=== PATIENT | female | born 1950 | race Caucasian/White ===

== ENCOUNTER 2020-06-18 11:12 | Outpatient (REF) | payer MEDICARE, SELFPAY ==
--- NOTE | ~2020-06-18 | CT_ITS ---
EXAMINATION: CT HEAD WITHOUT CONTRAST CLINICAL INFORMATION: Neurologic symptoms. COMPARISON: None available. TECHNIQUE: Contiguous axial imaging was performed from the skull base to vertex without intravenous administration of contrast. This CT examination was performed using dose optimization techniques as appropriate, variously including the following: *Automated exposure control. *Adjustment of mA and/or kV according to patient size (this includes techniques or standardized protocols for targeted exams where dose is matched to indication/reason for exam; i.e. extremities or head). *Use of iterative reconstruction technique. DLP: 675 mGy-cm FINDINGS: There is no evidence of acute intracranial hemorrhage or edematous territorial infarction. Scattered hypoattenuation in the periventricular and deep white matter are consistent with moderate microangiopathy. Ball-white matter differentiation is preserved. Proportional prominence of the ventricles and sulcal spaces. No evidence for obstructive hydrocephalus. No abnormal mass effect or midline shift. No extra-axial fluid collections. Calcific atherosclerotic disease of the intracranial internal carotid arteries. No hyperdense vessel sign. No acute soft tissue or osseous abnormalities. Mild mucosal thickening of the paranasal sinuses. The mastoid air cells and middle ear cavities are clear. CT/CT head/brain wo con IMPRESSION: 1. No evidence of acute intracranial hemorrhage or edematous territorial infarction. 2. Moderate underlying microangiopathy and generalized cerebral volume loss.
== END 2020-06-18 11:13 | disposition home or self-care (01) ==
LOC: HO.CT 11:12
PROVIDERS: Visit Provider Internal Medicine
DX: R29.818 Other symptoms and signs involving the nervous system (principal); R42 Dizziness and giddiness
CPT/HCPCS: 70450

== ENCOUNTER 2020-06-19 09:00 | Outpatient (RCR) | payer MEDICARE, SELFPAY | END 2020-06-19 11:27 | disposition other institution (70) | LOC: HO.OT 09:00 | PROVIDERS: PCP Internal Medicine; Visit Provider Physical Medicine & Rehabilitation Sports Medicine | DX: G56.03 Carpal tunnel syndrome, bilateral upper limbs (principal) | CPT/HCPCS: 97110; 97140; 97166 ==

== ENCOUNTER 2020-06-29 08:53 | Outpatient (REF) | payer MEDICARE, SELFPAY ==
--- NOTE | ~2020-06-29 | CT_ITS ---
EXAMINATION: CT CHEST SCREENING CLINICAL INFORMATION: Smoking history COMPARISON: Previous chest x-ray most recent April 2015 TECHNIQUE: Multidetector volumetric CT imaging of the chest is performed without contrast using low dose technique. Additional 2D coronal and sagittal reformatted images and axial 3D maximum intensity projection (MIP) images are generated on the CT workstation. This CT examination was performed using dose optimization techniques as appropriate, variously including the following: *Automated exposure control *Adjustment of mA and/or kV according to patient size (this includes techniques or standardized protocols for targeted exams where dose is matched to indication/reason for exam; i.e. extremities or head) *Use of iterative reconstruction technique DLP: 58 mGy-cm FINDINGS: LUNGS: There is a 1 to 2 mm right upper lobe nodule axial image 67 series 5. There is a 3 x 4 mm heterogeneous or semisolid right upper lobe nodule axial image 101 series 5. There is a 2 mm peripheral or subpleural superior segment right lower lobe nodule adjacent to the major fissure axial image 126 series 5. No endobronchial or endotracheal lesion is seen. MEDIASTINUM: The mediastinum is normal. PLEURA: There is no pleural effusion. No pleural mass or thickening. AXILLA: No lymphadenopathy. There is a 1 x 1.5 cm subcutaneous low-attenuation lesion in the right upper back probably representing a sebaceous cyst or epidermoid. UPPER ABDOMEN: Unremarkable OSSEOUS STRUCTURES: There are mild degenerative changes of the spine. CT/CT lung screening IMPRESSION: Small pulmonary nodules. ASSESSMENT: Lung-RADS category 2: Benign RECOMMENDATION: Annual low-dose chest CT follow-up recommended.
== END 2020-06-29 08:54 | disposition home or self-care (01) ==
LOC: HO.CT 08:53
PROVIDERS: Visit Provider Surgery
DX: Z12.2 Encounter for screening for malignant neoplasm of respiratory organs (principal); F17.210 Nicotine dependence, cigarettes, uncomplicated
CPT/HCPCS: 71271

== ENCOUNTER 2020-07-03 10:00 | Outpatient (RCR) | payer MEDICARE, SELFPAY ==
[2020-06-07 12:05] VITALS: BP 152/67; PULSE 64; O2SAT 97
--- NOTE | 2020-06-07 14:01 | MHC.PT.EP ---
[facility] [place] Office [place] Office [place] [facility] [address] Chey Stahl [address] [phone] F: [phone] F: [phone] F: [phone] F: [phone] Physical Therapy Plan of Care Date of Evaluation: 06/07/20 Date of Surgery: Diagnosis: Dizziness Assessment: The Pt is a 69 y/o female referred to skilled PT for dizziness. Signs and symptoms are consistent with balance impairments related to vestibular hypofunction. Assessment reveals decreased balance strategies, impaired gait, impaired DVA, impaired convergence, and mild dizziness w/ VOR tests. Related functional limitations include: bending over to pick something up, rolling over in bed, moving from supine to sitting, walking (feels like she goes off balanced), and performing quick movements of the head, such as when driving. Pt will benefit from skilled PT services w/ focus on habituation and balance training in order to reduce impairments and improve limitations. Of note, Pt is being seen by Occupational therapy for bilateral arm and hand weakness & numbness. She has a brain CT coming up soon. Frequency and Duration: The patient will be seen 1x/week for 10 weeks Short Term Goals: -In 2 weeks, Pt will demonstrate I w/ VOR x 1, VOR cancellation, and visual tracking exercises. -In 4 weeks, Pt to report no dizziness w/ bed mobility and functional transfers. 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 -In 8 weeks, Pt will score within 3 lines of baseline w/ vertical and horizontal head turns on DVA test. Treatment Plan: Vestibular therapy (habituation/adaptation) Gait training Therapeutic exercise to improve strength and flexibility. Neuromuscular re-education for posture and balance. Therapeutic activities to return to functional activities of daily living. Electronically signed by: Shirley Hawk PT, DPT Please sign and return to therapist. Thank you for your referral.
== END 2020-11-07 13:45 | disposition home or self-care (01) ==
LOC: HO.PT 10:00
PROVIDERS: PCP Internal Medicine; Visit Provider Internal Medicine
DX: R42 Dizziness and giddiness (principal)
CPT/HCPCS: 95992; 97112; 97161

== ENCOUNTER 2020-07-30 12:22 | Outpatient (REF) | payer MEDICARE, SELFPAY ==
--- NOTE | ~2020-07-30 | MM_ITS ---
EXAMINATION: MM SCREENING DIGITAL BREAST TOMOSYNTHESIS, BILATERAL CLINICAL INFORMATION: Screening. Asymptomatic. The lifetime risk of breast cancer based on the Tyrer-Cuzick Model is 3.2%. COMPARISON: Mammography: March 31, 2015 and studies dating back to December 27, 2007 TECHNIQUE: Digital breast tomosynthesis is performed in both the craniocaudal and mediolateral oblique views along with computer-aided detection (CAD). Synthesized 2D images are generated from the tomosynthesis. FINDINGS: The breasts are almost entirely fatty (ACR BI-RADS breast composition Category a). There is an oval density seen about the upper outer aspect of the right breast which is seen to have been present on study of December 27, 2007. No new abnormal dominant mass or suspicious grouping of microcalcifications identified. MM/MM tomosynthesis screening BI IMPRESSION: There are no significant changes from prior study. ASSESSMENT: BI-RADS 2: Benign RECOMMENDATION: Routine annual mammography screening. This patient's information was entered into a reminder system with a target due date for their next mammogram.
== END 2020-07-30 12:23 | disposition home or self-care (01) ==
LOC: HO.MAMMO 12:22
PROVIDERS: Visit Provider Internal Medicine
DX: Z12.31 Encounter for screening mammogram for malignant neoplasm of breast (principal)
CPT/HCPCS: 77063; 77067

== ENCOUNTER 2020-08-01 12:41 | Outpatient (REF) | payer MEDICARE, SELFPAY ==
--- NOTE | ~2020-08-01 | MR_ITS ---
EXAMINATION: MR CERVICAL SPINE WITHOUT CONTRAST CLINICAL INFORMATION: Neck pain. COMPARISON: No relevant prior imaging. TECHNIQUE: MRI of the cervical spine was obtained using routine sequences without contrast. FINDINGS: Alignment is normal. Vertebral body heights are preserved. No acute bone marrow signal changes. There are well marginated intraosseous hemangiomas involving multiple vertebral segments. There is loss of intervertebral disc height and T2 signal intensity at multiple levels related to disc degeneration. The cervicomedullary junction is normal. Limited visualization of the posterior fossa reveals no abnormal 5. Occipital condyles and lateral C1 masses are intact. Atlantodental joint is normal. C1-C2 articular facets are unremarkable. At C2-C3 the annular contour is normal. No canal or neuroforaminal compromise. At C3-C4 there is a central protrusion superimposed upon a bulging disc causing indentation of the thecal sac, severe canal stenosis, and compression of the cervical spinal cord. There is a short segment of increased intramedullary T2 signal intensity indicating edema and/or myelomalacia. Uncovertebral joint spurring causes moderate left and mild right neuroforaminal encroachment. At C4-C5 there is a shallow central protrusion superimposed upon a bulging disc. Moderate to severe canal stenosis with subtle distortion of the ventral cord contour. Uncovertebral joint spurring causes moderate bilateral neuroforaminal encroachment. At C5-C6 there is a diffusely bulging disc and buckling of ligamenta flava causing moderate to severe canal stenosis. Uncovertebral joint spurring causes moderate left and moderate right neuroforaminal encroachment. At C6-C7 there is a broad central protrusion causing abutment on the ventral surface of the cervical cord. Mild canal stenosis. No substantial neuroforaminal encroachment. At C7-T1 the annular contour is normal. No canal or neuroforaminal compromise. Visualized soft tissues of the neck are normal. MR/MR cervical spine wo con IMPRESSION: There are disc herniations at multiple levels within the cervical spine. At C3-C4 a relatively large disc herniation causes severe canal stenosis with compression of the cervical spinal cord. There is a short segment of edema and/or myelomalacia at this level. Moderate to severe canal stenosis is also demonstrated at C4-C5 and C5-C6. Mild canal stenosis at C6-C7. There are varying degrees of neuroforaminal encroachment related to uncovertebral joint spurring as described above.
== END 2020-08-01 12:42 | disposition home or self-care (01) ==
LOC: HO.MRI 12:41
PROVIDERS: Visit Provider Orthopaedic Surgery Hand Surgery
DX: M54.2 Cervicalgia (principal)
CPT/HCPCS: 72141

== ENCOUNTER 2020-11-16 10:11 | Outpatient (REF) | payer MEDICARE, SELFPAY ==
[2020-11-16 11:13] LABS: MANUAL DIFF FLAG NO
[2020-11-16 11:29] LABS: INTERNATIONAL NORM RATIO 1.1 (0.9-1.1)
[2020-11-16 11:31] LABS: Partial Thromboplastin Time 39.9 SEC (24.1-38.0)
[2020-11-16 11:38] LABS: Basophils Percent Auto 0.2 % (0-2); Eosinophils Percent Auto 0.2 % (0-4); Hematocrit 38.4 % (37-47); Imm Gran Abs Auto 0.03 X10*3/uL (0.00-0.03); Imm Gran Pct Auto 0.6 % (0.0-0.4); Lymphocytes Absolute Auto 2.2 X10*3/uL (1.2-4.9); Lymphocytes Percent Auto 40.7 % (20-40); Mean Corpuscular HGB Conc 33.9 g/dl (31.0-35.0); Mean Corpuscular Hemoglobin 33.7 pg (27.0-33.0); Mean Corpuscular Volume 99.5 fL (80-98); Mean Platelet Volume 11.7 fL (9.4-12.3); Monocytes Absolute Auto 0.5 X10*3/uL (0.1-1.2); Monocytes Percent Auto 9.3 % (2-11); Neutrophils Absolute Auto 2.7 X10*3/uL (2.0-8.3); Platelet Count 162 X10*3/uL (160-400); Red Blood Count 3.86 X10*6/uL (4.20-5.50); Red Cell Distribution Width 12.8 % (11.0-16.0); White Blood Count 5.4 X10*3/uL (4.8-10.8)
[2020-11-16 12:03] LABS: Alanine Aminotransferase 20 U/L (0-31); Albumin Level 3.9 g/dL (3.5-5.0); Alkaline Phosphatase 77 U/L (39-117); Anion Gap 11 (12-20); Aspartate Amino Transferase 19 U/L (5-31); Bilirubin Total 0.6 mg/dL (0.0-1.0); Blood Urea Nitrogen 9 mg/dL (9-16); Calcium 9.5 mg/dL (8.4-10.2); Carbon Dioxide 26 mmol/L (22-29); Chloride 108 mmol/L (96-108); Estimated Glomerular Filt Rate > 60; Glucose Random 86 mg/dL (60-115); Potassium 3.9 mmol/L (3.3-5.1); Sodium 141 mmol/L (135-145); Total Protein 6.2 g/dL (6.5-8.0)
[2020-11-16 12:16] LABS: TSH reflex Free T4 1.33 uIU/mL (0.32-4.0); Vitamin D 25-OH Total 5.7 ng/mL (>30)
[2020-11-16 12:25] LABS: Folate 9.1 ng/mL (> or = 4.0); Vitamin B12 146 pg/mL (200-900)
== END 2020-11-16 10:12 | disposition home or self-care (01) ==
LOC: HO.HMGCLDS 10:11
PROVIDERS: PCP Internal Medicine; Visit Provider Internal Medicine
DX: Z00.00 Encounter for general adult medical examination without abnormal findings (principal); G95.9 Disease of spinal cord, unspecified
CPT/HCPCS: 36415; 80053; 82306; 82607; 82746; 84443; 85025; 85027; 85610; 85730

== ENCOUNTER 2021-07-31 12:31 | Outpatient (REF) | payer MEDICARE, SELFPAY ==
--- NOTE | ~2021-07-31 | MM_ITS ---
EXAMINATION: MM SCREENING DIGITAL BREAST TOMOSYNTHESIS, BILATERAL CLINICAL INFORMATION: Screening. Asymptomatic. The lifetime risk of breast cancer based on the Tyrer-Cuzick Model is 3%. COMPARISON: Mammography: 07/30/2020, 03/31/2015 TECHNIQUE: Digital breast tomosynthesis is performed in both the craniocaudal and mediolateral oblique views along with computer-aided detection (CAD). Synthesized 2D images are generated from the tomosynthesis. Additional bilateral CC and right MLO views are provided. FINDINGS: There are scattered areas of fibroglandular density (ACR BI-RADS breast composition Category b). There are no significant masses, abnormal calcifications, or other abnormalities. Parenchymal pattern is similar to prior studies. No developing density or architectural abnormality. There are scattered bilateral benign round and probable ductal secretory calcifications. The axilla are unremarkable. No significant changes. MM/MM tomosynthesis screening BI IMPRESSION: No mammographic evidence of malignancy. ASSESSMENT: BI-RADS 2: Benign RECOMMENDATION: Routine annual mammography screening. This patient's information was entered into a reminder system with a target due date for their next mammogram.
== END 2021-07-31 12:32 | disposition home or self-care (01) ==
LOC: HO.MAMMO 12:31
PROVIDERS: PCP Internal Medicine; Visit Provider Internal Medicine
DX: Z12.31 Encounter for screening mammogram for malignant neoplasm of breast (principal)
CPT/HCPCS: 77063; 77067

== ENCOUNTER 2022-05-13 20:28 | Emergency (ER) | payer MEDICARE, SELFPAY ==
--- NOTE | ~2022-05-13 | XR_ITS ---
EXAMINATION: XR CHEST CLINICAL INFORMATION: Chest tube placement COMPARISON: Earlier same day TECHNIQUE: Frontal view of the chest was obtained. FINDINGS: The chest tube in the lateral chest wall subcutaneous tissues has been removed. Trace left pneumothorax appears even smaller than on the prior exam. No parenchymal consolidation. No pleural effusion. Cardiomediastinal silhouette and pulmonary vascularity are within normal limits. No acute osseous abnormalities. XR/XR chest 1V IMPRESSION: * Interval removal of the chest tube. * Trace left pneumothorax appears smaller than on the prior exam.
--- NOTE | ~2022-05-13 | CT_ITS ---
EXAMINATION: CT HEAD WITHOUT CONTRAST CT CERVICAL SPINE WITHOUT CONTRAST CLINICAL INFORMATION: Fall. Head strike. COMPARISON: 06/18/2020 TECHNIQUE: Multidetector CT imaging of the head and cervical spine was performed without the use of intravenous contrast. Multiplanar reformats are reviewed. This CT examination was performed using dose optimization techniques as appropriate, variously including the following: *Automated exposure control *Adjustment of mA and/or kV according to patient size (this includes techniques or standardized protocols for targeted exams where dose is matched to indication/reason for exam; i.e. extremities or head) *Use of iterative reconstruction technique DLP: 742 mGy-cm. FINDINGS: There is no evidence of acute intracranial hemorrhage or territorial infarction. No abnormal mass effect or midline shift is seen. Ball to white matter differentiation is well preserved. No extra-axial fluid collections are identified. No hydrocephalus. Proportional prominence of the ventricles and sulcal spaces is consistent with mild volume loss. Patchy periventricular and deep white matter hypoattenuation is consistent with moderate small vessel ischemic changes. No acute osseous or soft tissue abnormality. The mastoid air cells and visualized portions of the paranasal sinuses are well aerated. Atlantooccipital alignment is maintained. The vertebral bodies and posterior elements align normally. No acute fracture or subluxation. Vertebral body heights are maintained. Small endplate osteophytes present C5-C6 and C6-C7. Postsurgical changes of the left lateral posterior lamina C4, C5-C6, with resection of the spinous processes these levels. The paraspinal soft tissues are unremarkable. Imaged thorax reveals a moderate left pneumothorax. CT/CT cervical spine wo IV con IMPRESSION: No acute intracranial pathology. No cervical spine fracture or malalignment. Moderate left pneumothorax. Referring team has been notified.
--- NOTE | ~2022-05-13 | CT_ITS ---
EXAMINATION: CT CHEST, ABDOMEN AND PELVIS WITHOUT CONTRAST. CLINICAL INFORMATION: Fall. Trauma . COMPARISON: 06/29/2020. TECHNIQUE: Multidetector volumetric imaging was performed from the thoracic inlet through the pubic symphysis without intravenous contrast. Sagittal and coronal reformatted images were obtained on the technologist workstation. This CT examination was performed using dose optimization techniques as appropriate, variously including the following: *Automated exposure control *Adjustment of mA and/or kV according to patient size (this includes techniques or standardized protocols for targeted exams where dose is matched to indication/reason for exam; i.e. extremities or head) *Use of iterative reconstruction technique DLP: 1302 mGy-cm FINDINGS: CHEST: Lungs: Small moderate left-sided pneumothorax is seen. This associated mild left basilar atelectasis. No dense consolidation or suspicious pulmonary nodularity. Central airways grossly unremarkable Mediastinum: Vascular calcification seen within the aorta. No suspicious or bulky adenopathy. Asymmetric enlargement of the left thyroid gland similar to the prior study Coronary Artery Calcification: Present Pericardium/Pleura: Small left pleural effusion. No pericardial effusion Chest Wall/Axilla: Unremarkable. ABDOMEN/PELVIS: Peritoneal Space:No significant free air or free fluid identified. Liver, Gallbladder, Biliary Tree: Diffuse fatty infiltration of the liver but no focal hepatic lesion nor biliary ductal dilatation. The gallbladder is unremarkable with no evidence of radiopaque gallstones, gallbladder wall thickening, or obvious pericholecystic inflammatory changes. Pancreas: Unremarkable. Spleen: Unremarkable. Adrenal Glands: Unremarkable. Kidneys and Ureters: The kidneys are normal in size, shape, and attenuation. No hydronephrosis, hydroureter, or calculi seen. No perinephric stranding. Bladder: Unremarkable. Gastrointestinal Tract: Colon is redundant with scattered diverticulosis but no colonic wall thickening or pericolonic inflammatory change to suggest diverticulitis. Although there is prominent stool seen within the colon, there is a suggestion of some subtle pneumatosis in the cecum. I'm uncertain of this is artifactual due to the stool in this region. Clinical correlation with lactate level may be helpful Abdominal Wall: No significant hernia is appreciated. Lymphovascular Structures: Mild vascular calcification within the aorta iliac system. No bulky adenopathy. Pelvic Viscera: Unremarkable. Osseus Structures: Subtle nondisplaced fractures of the posterior left fifth, sixth, seventh and ninth rib fractures are seen. No significant right-sided rib fracture. Mild multilevel degenerative changes in the spine but no acute fracture or spondylolisthesis. CT/CT abdomen pelvis wo IV con IMPRESSION: 1. Small to moderate left-sided pneumothorax with nondisplaced left-sided rib fractures as described above. 2. There is a suggestion of some subtle pneumatosis in the cecum. I'm uncertain of this is artifactual due to the stool in this region. Clinical correlation with lactate level may be helpful. This critical result was discussed with Dr. Amaro at 05/13/2022 11:08 PM and it was ascertained that the content and urgency of the report was understood at the time of direct communication.
--- NOTE | ~2022-05-13 | XR_ITS ---
EXAMINATION: XR CHEST CLINICAL INFORMATION: Chest tube placement COMPARISON: CT scan 05/13/2022 10:31 PM TECHNIQUE: Frontal view of the chest was obtained. FINDINGS: Heart size normal. A tiny left-sided pneumothorax is present only visible at the apex, with the pleural surface pulled away by less than 3 mm. The recently placed small caliber left-sided chest tube is not within the pleural space but in the chest wall. There is a small amount of subcutaneous emphysema. No infiltrates or effusions. Minimally displaced left-sided rib fractures better seen on the CAT scan. XR/XR chest 1V IMPRESSION: Tiny left-sided pneumothorax with chest tube in the chest wall and not the pleural space. This critical result was discussed with Riya GARCIA at 12:59 AM on 05/14/2022 and it was ascertained that the content and urgency of the report was understood at the time of direct communication.
[2022-05-13 20:34] VITALS: BP 140/80; BP 170/66; PULSE 72; PULSE 75; RESP 18; TEMP 36.7; O2SAT 95; BMI 31.6
--- NOTE | 2022-05-13 20:43 | PC.NURSE ---
RN upgraded pt's PRASHANTH from a 3 to a 2 due to mechanism of injury and pt's presentation. Pt awake, alert, answering questions appropriately. Prior to triage the pt requested the HOB be lifted slightly d/t difficulty breathing which was relieved by the HOB being lifted; denies respiratory history although currently reports having bronchitis. Pt initially observed to be 98% on room air however during triage the pt's O2 Sat was noted to go down and stay steadily at 95% with persed lip breathing. RN presented the pt to JOSE Worthington to discuss imaging and order needs. New orders to be entered. Pt aware of plan for imaging and is awaiting primary eval Pt has call spence in reach
[2022-05-13 21:04] LABS: MANUAL DIFF FLAG NO
--- NOTE | 2022-05-13 21:10 | ED.FALL ---
HPI - Fall General Chief Complaint: Fall <Chilo Mae MD - Last Filed: 05/14/22 05:37> Stated Complaint: FALL + HEADSTRIKE <Chilo Mae MD - Last Filed: 05/14/22 05:37> Time Seen by Provider: 05/13/22 21:10 <MD Cesia Waldron Last Filed: 05/14/22 05:37> Source: patient <Chilo Mae MD - Last Filed: 05/14/22 05:37> Mode of arrival: ambulatory <MD Cesia Waldron Last Filed: 05/14/22 05:37> Limitations: no limitations <MD Cesia Waldron Last Filed: 05/14/22 05:37> History of Present Illness HPI Narrative: Patient apparently missed a step while going to the bathroom causing her fall hitting her left side of the head to the wall and left ribs to the shower ledge, no loss of consciousness no nausea no vomiting patient feels pain in left ribs with deep breaths no significant shortness of breath no headache no seizures also complaining of pain left side of the neck patient recently had neck fusion surgery patient is not on any blood thinner able to ambulate <Chilo Mae MD - Last Filed: 05/14/22 05:37> Related Data Home Medications: Previous Rx's Medication Instructions Recorded cholecalciferol (vitamin D3) 125 125 mcg PO DAILY #90 caps 11/17/20 mcg (5,000 unit) capsule cyanocobalamin (vitamin B-12) 2,000 mcg PO DAILY #90 tabs 11/17/20 2,000 mcg tablet <MD Cesia Waldron Last Filed: 05/14/22 05:37> Allergies/Adverse Reactions: Allergies Allergy/AdvReac Type Severity Reaction Status Date / Time IVP Allergy Unknown anaphylaxis Uncoded 05/13/22 20:48 <Chilo Mae MD - Last Filed: 05/14/22 05:37> Review of Systems Review of Systems: Constitutional : No Weight loss, No Fever, No Chills ENT/Mouth : No sore throat, No Rhinorrhea Eyes: No Eye Pain, No Swelling Cardiovascular : ++L Chest wall Pain, no palpitations Respiratory : No Cough, No Sputum, no shortness of breath Gastrointestinal : no Nausea, No Vomiting, No Diarrhea, No abdominal Pain, no black stools Genitourinary : No Dysuria, No Urinary Frequency Musculoskeletal : No joint pain, No Myalgias, No Joint Swelling Skin : No Skin Lesions, No rash Neuro : No Weakness, No Numbness, No Dizziness, No Headache Psych : No Anxiety/Panic, No Depression Heme/Lymph: No Bruising, No Lymphadenopathy Endocrine : No Polyuria, No Polydipsia All other systems reviewed and are negative <Chilo Mae MD - Last Filed: 05/14/22 05:37> Yes all other systems are reviewed and are negative <Chilo Mae MD - Last Filed: 05/14/22 05:37> [facility] Past Medical History Medical History: Medical History Annual physical exam Cervical myelopathy LBBB (left bundle branch block) 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 Tinnitus Tobacco abuse Vertigo Vitamin B 12 deficiency Vitamin D deficiency <Chilo Mae MD - Last Filed: 05/14/22 05:37> Surgical History: Surgical History H/O gastric bypass History of appendectomy <Chilo Mae MD - Last Filed: 05/14/22 05:37> Family History Family History: Family History Father Diabetes Mother HTN (hypertension) <Chilo Mae MD - Last Filed: 05/14/22 05:37> Social History Social History: Social History Household Members Other:: lives mother, sisters Housing: House Alcohol intake: former Patient Tobacco Use Status: Current everyday Tobacco user Tobacco use type: Cigarette Cigarettes Per Day: 15 Smoked in Last 30 Days: Yes Use of substances other than those prescribed or required for medical reasons: No Advance Directives: No Advance Directives Information Provided: Yes Current occupational status: retired <Chilo Mae MD - Last Filed: 05/14/22 05:37> Physical Exam Vital Signs: Vital Signs: Last Vital Signs Temp 98.2 F 05/14/22 04:34 Pulse 81 05/14/22 04:34 Resp 16 05/14/22 04:34 BP 124/58 L 05/14/22 04:34 Pulse Ox 97 05/14/22 04:34 O2 Del Method 05/14/22 04:34 O2 Flow Rate 2 05/14/22 04:34 BMI result Body Mass Index 31.6 <Chilo Mae MD - Last Filed: 05/14/22 05:37> Vital Signs: Last Vital Signs Temp 98.2 F 05/14/22 04:34 Pulse 81 05/14/22 04:34 Resp 16 05/14/22 04:34 BP 124/58 L 05/14/22 04:34 Pulse Ox 97 05/14/22 04:34 O2 Del Method 05/14/22 04:34 O2 Flow Rate 2 05/14/22 04:34 BMI result Body Mass Index 31.6 <Mehnaz Back MD - Last Filed: 05/14/22 01:09> Appearance: Alert. Oriented X3. In moderate distress. Eyes: PERRLA, No Nystagmus ENT: Pharynx normal. Oral Mucosa moist Neck: Normal inspection. Neck supple. In cervical collar CVS: Normal heart rate and rhythm. Pulses normal. Respiratory: No respiratory distress. Equal air entry bilateral, no wheezing/rales/rhonchi tender left upper ribs in mid axillary area Abdomen: Soft and nontender. Bowel sounds are present, no mass palpable, no CVA tenderness Skin: Skin warm and dry. Normal skin color. Normal skin turgor. Extremities: No lower extremity edema. No calf tenderness Neuro: Oriented X 3. No motor deficit. No sensory deficit.No cerebellar signs , cranial nerves II-XII intact <Chilo Mae MD - Last Filed: 05/14/22 05:37> Medications Administered Discontinued Medications Generic Name Dose Route Start Last Admin Trade Name Freq PRN Reason Stop Dose Admin Hydromorphone HCl 1 mg 05/13/22 23:45 05/13/22 23:54 Hydromorphone Hcl 1 Mg/Ml Syringe IVPUSH 05/13/22 23:46 1 mg ONCE ONE Administration Protocol Hydromorphone HCl 1 mg 05/14/22 01:09 05/14/22 01:18 Hydromorphone Hcl 1 Mg/Ml Syringe IVPUSH 05/14/22 01:10 1 mg ONCE ONE Administration Protocol Ketamine HCl 200 mg 05/13/22 23:21 05/13/22 23:58 Ketamine Hcl 500 Mg/5 Ml Vial IM 05/13/22 23:22 200 mg ONCE ONE Administration Lidocaine HCl 20 ml 05/13/22 23:21 05/14/22 01:19 Lidocaine Hcl 2 % Mpf 5 Ml Vial INFILTRATI 05/13/22 23:22 20 ml ONCE ONE Administration Morphine Sulfate 4 mg 05/13/22 21:17 05/13/22 21:42 Morphine Sulfate 4 Mg/Ml Cartridge IVPUSH 05/13/22 21:18 4 mg ONCE ONE Administration Protocol Ondansetron HCl 4 mg 05/13/22 21:17 05/13/22 21:42 Ondansetron Hcl 4 Mg/2 Ml Vial IVPUSH 05/13/22 21:18 4 mg ONCE ONE Administration Ondansetron HCl 4 mg 05/13/22 23:25 05/13/22 23:56 Ondansetron Hcl 4 Mg/2 Ml Vial IVPUSH 05/13/22 23:26 4 mg ONCE ONE Administration <Chilo Mae MD - Last Filed: 05/14/22 05:37> Medications Administered Discontinued Medications Generic Name Dose Route Start Last Admin Trade Name Freq PRN Reason Stop Dose Admin Hydromorphone HCl 1 mg 05/13/22 23:45 05/13/22 23:54 Hydromorphone Hcl 1 Mg/Ml Syringe IVPUSH 05/13/22 23:46 1 mg ONCE ONE Administration Protocol Hydromorphone HCl 1 mg 05/14/22 01:09 05/14/22 01:18 Hydromorphone Hcl 1 Mg/Ml Syringe IVPUSH 05/14/22 01:10 1 mg ONCE ONE Administration Protocol Ketamine HCl 200 mg 05/13/22 23:21 05/13/22 23:58 Ketamine Hcl 500 Mg/5 Ml Vial IM 05/13/22 23:22 200 mg ONCE ONE Administration Lidocaine HCl 20 ml 05/13/22 23:21 05/14/22 01:19 Lidocaine Hcl 2 % Mpf 5 Ml Vial INFILTRATI 05/13/22 23:22 20 ml ONCE ONE Administration Morphine Sulfate 4 mg 05/13/22 21:17 05/13/22 21:42 Morphine Sulfate 4 Mg/Ml Cartridge IVPUSH 05/13/22 21:18 4 mg ONCE ONE Administration Protocol Ondansetron HCl 4 mg 05/13/22 21:17 05/13/22 21:42 Ondansetron Hcl 4 Mg/2 Ml Vial IVPUSH 05/13/22 21:18 4 mg ONCE ONE Administration Ondansetron HCl 4 mg 05/13/22 23:25 05/13/22 23:56 Ondansetron Hcl 4 Mg/2 Ml Vial IVPUSH 05/13/22 23:26 4 mg ONCE ONE Administration <Mehnaz Back MD - Last Filed: 05/14/22 01:09> Procedures Chest Tube Chest Tube 1: Chest Tube Location: left <Mehnaz Back MD - Last Filed: 05/14/22 01:09> Size of Tube (cm): 14 <Mehnaz Back MD - Last Filed: 05/14/22 01:09> Chest Tube Prep: Yes betadine prep and sterile drapes applied <Mehnaz Back MD - Last Filed: 05/14/22 01:09> Local Anesthetic: lidocaine 1% <Mehnaz Back MD - Last Filed: 05/14/22 01:09> Amount of anesthesia used (mL): 5 <Mehnaz Back MD - Last Filed: 05/14/22 01:09> Incision Made With: #11 blade <Mehnaz Back MD - Last Filed: 05/14/22 01:09> Post Procedure: sutured to skin and sterile dressing applied <Mehnaz Back MD - Last Filed: 05/14/22 01:09> Tube Drainage: none <Mehnaz Back MD - Last Filed: 05/14/22 01:09> Post Procedure CXR?: Yes <Mehnaz Back MD - Last Filed: 05/14/22 01:09> Patient Tolerated Procedure: Yes <Mehnaz Back MD - Last Filed: 05/14/22 01:09> Complications: placement outside of thoracic cavity <Mehnaz Back MD - Last Filed: 05/14/22 01:09> Progress: Chest x-ray shows a tiny left-sided pneumothorax with chest tube in the chest wall, pulled out <Mehnaz Back MD - Last Filed: 05/14/22 01:09> Medical Decision Making Medical Decision Making [facility] Narrative: Patient status post mechanical fall likely with rib fractures no other significant injuries noticed will get CT scan of the head C-spine chest and abdomen to rule out internal injuries vitals are stable [address] showed multiple rib fracture with moderate pneumothorax will place chest tube patient is saturating 95% on room air improved to 99% on 2 L 0100: Pigtail catheter chest tube was tried by Dr. Back went to subcutaneous space but she heard the air leak, x-ray showed minimal less than 3 mm pneumothorax pigtail catheter was removed. As patient has 4 rib fractures (5,6,7,9) status post fall will transfer to [facility] Trauma case with Dr. Barney in ER accepted the patient for transfer <Chilo Mae MD - Last Filed: 05/14/22 05:37> Lab Data [facility] Lab Attestation statement: I reviewed the patient's lab results. <Chilo Mae MD - Last Filed: 05/14/22 05:37> Result Diagrams: 05/13/22 20:59 05/13/22 20:59 <Chilo Mae MD - Last Filed: 05/14/22 05:37> Labs: Lab Results 05/13/22 05/13/22 05/13/22 Range/Units 20:59 20:59 20:59 WBC 7.2 (4.8-10.8) X10*3/uL RBC 3.81 L (4.20-5.50) X10*6/uL Hgb 12.3 (12.0-16.0) g/dl Hct 36.9 L (37.0-47.0) % MCV 96.9 (80.0-98.0) fL MCH 32.3 (27.0-33.0) pg MCHC 33.3 (31.0-35.0) g/dl RDW 12.9 (11.0-16.0) % Plt Count 153 L (160-400) X10*3/uL MPV 10.9 (9.4-12.3) fL Immature Gran % (Auto) 1.2 H (0.0-0.4) % Neut % (Auto) 56.3 (45-73) % Lymph % (Auto) 35.5 (20-40) % [place] % (Auto) 6.6 (2-11) % Eos % (Auto) 0.3 (0-4) % Baso % (Auto) 0.1 (0-2) % Lymph # (Auto) 2.6 (1.2-4.9) X10*3/uL [place] # (Auto) 0.5 (0.1-1.2) X10*3/uL Eos # (Auto) 0.0 (0.0-0.4) X10*3/uL Baso # (Auto) 0.0 (0.0-0.2) X10*3/uL Abs Immat Gran (auto) 0.09 H (0.00-0.03) X10*3/uL Absolute Neuts (auto) 4.1 (2.0-8.3) x10*3/uL Absolute Nucleated RBC 0.000 (0.0-0.012) X10*3/uL Nucleated RBC % (auto) 0.0 (0.0-0.2) /100WBC PT (10.0-13.1) SEC INR (0.9-1.1) APTT (26.0-36.4) SEC Sodium 143 (135-145) mmol/L Potassium 3.2 L (3.3-5.1) mmol/L Chloride 104 (96-108) mmol/L Carbon Dioxide 31 H (22-29) mmol/L Anion Gap 11 L (12-20) BUN 9 (9-16) mg/dL Creatinine 0.82 (0.5-1.4) mg/dL Estim Creat Clear Calc 64.8 Estimated GFR > 60 Random Glucose 103 (60-115) mg/dL Lactic Acid (0.5-2.0) mmol/L Calcium 9.0 (8.4-10.2) mg/dL Total Bilirubin 0.6 (0.0-1.0) mg/dL AST 20 (5-31) U/L ALT 16 (0-31) U/L Alkaline Phosphatase 82 (39-117) U/L Troponin I High Sens 9.1 (<3.5-17.0) ng/L Total Protein 5.8 L (6.5-8.0) g/dL Albumin 3.6 (3.5-5.0) g/dL COVID-19 ([facility]) (Negative) COVID-19 Clin Com 05/13/22 05/13/22 05/13/22 Range/Units 23:38 23:38 23:38 WBC (4.8-10.8) X10*3/uL RBC (4.20-5.50) X10*6/uL Hgb (12.0-16.0) g/dl Hct (37.0-47.0) % MCV (80.0-98.0) fL MCH (27.0-33.0) pg MCHC (31.0-35.0) g/dl RDW (11.0-16.0) % Plt Count (160-400) X10*3/uL MPV (9.4-12.3) fL Immature Gran % (Auto) (0.0-0.4) % Neut % (Auto) (45-73) % Lymph % (Auto) (20-40) % [place] % (Auto) (2-11) % Eos % (Auto) (0-4) % Baso % (Auto) (0-2) % Lymph # (Auto) (1.2-4.9) X10*3/uL [place] # (Auto) (0.1-1.2) X10*3/uL Eos # (Auto) (0.0-0.4) X10*3/uL Baso # (Auto) (0.0-0.2) X10*3/uL Abs Immat Gran (auto) (0.00-0.03) X10*3/uL Absolute Neuts (auto) (2.0-8.3) x10*3/uL Absolute Nucleated RBC (0.0-0.012) X10*3/uL Nucleated RBC % (auto) (0.0-0.2) /100WBC PT 13.9 H (10.0-13.1) SEC INR 1.2 H (0.9-1.1) APTT 35.1 (26.0-36.4) SEC Sodium (135-145) mmol/L Potassium (3.3-5.1) mmol/L Chloride (96-108) mmol/L Carbon Dioxide (22-29) mmol/L Anion Gap (12-20) BUN (9-16) mg/dL Creatinine (0.5-1.4) mg/dL Estim Creat Clear Calc Estimated GFR Random Glucose (60-115) mg/dL Lactic Acid 0.6 (0.5-2.0) mmol/L Calcium (8.4-10.2) mg/dL Total Bilirubin (0.0-1.0) mg/dL AST (5-31) U/L ALT (0-31) U/L Alkaline Phosphatase (39-117) U/L Troponin I High Sens (<3.5-17.0) ng/L Total Protein (6.5-8.0) g/dL Albumin (3.5-5.0) g/dL COVID-19 ([facility]) (Negative) COVID-19 Clin Com 05/14/22 Range/Units 01:25 WBC (4.8-10.8) X10*3/uL RBC (4.20-5.50) X10*6/uL Hgb (12.0-16.0) g/dl Hct (37.0-47.0) % MCV (80.0-98.0) fL MCH (27.0-33.0) pg MCHC (31.0-35.0) g/dl RDW (11.0-16.0) % Plt Count (160-400) X10*3/uL MPV (9.4-12.3) fL Immature Gran % (Auto) (0.0-0.4) % Neut % (Auto) (45-73) % Lymph % (Auto) (20-40) % [place] % (Auto) (2-11) % Eos % (Auto) (0-4) % Baso % (Auto) (0-2) % Lymph # (Auto) (1.2-4.9) X10*3/uL [place] # (Auto) (0.1-1.2) X10*3/uL Eos # (Auto) (0.0-0.4) X10*3/uL Baso # (Auto) (0.0-0.2) X10*3/uL Abs Immat Gran (auto) (0.00-0.03) X10*3/uL Absolute Neuts (auto) (2.0-8.3) x10*3/uL Absolute Nucleated RBC (0.0-0.012) X10*3/uL Nucleated RBC % (auto) (0.0-0.2) /100WBC PT (10.0-13.1) SEC INR (0.9-1.1) APTT (26.0-36.4) SEC Sodium (135-145) mmol/L Potassium (3.3-5.1) mmol/L Chloride (96-108) mmol/L Carbon Dioxide (22-29) mmol/L Anion Gap (12-20) BUN (9-16) mg/dL Creatinine (0.5-1.4) mg/dL Estim Creat Clear Calc Estimated GFR Random Glucose (60-115) mg/dL Lactic Acid (0.5-2.0) mmol/L Calcium (8.4-10.2) mg/dL Total Bilirubin (0.0-1.0) mg/dL AST (5-31) U/L ALT (0-31) U/L Alkaline Phosphatase (39-117) U/L Troponin I High Sens (<3.5-17.0) ng/L Total Protein (6.5-8.0) g/dL Albumin (3.5-5.0) g/dL COVID-19 ([facility]) Negative (Negative) COVID-19 Clin Com See Note <Chilo Mae MD - Last Filed: 05/14/22 05:37> Lab Results 05/13/22 05/13/22 05/13/22 Range/Units 20:59 20:59 20:59 WBC 7.2 (4.8-10.8) X10*3/uL RBC 3.81 L (4.20-5.50) X10*6/uL Hgb 12.3 (12.0-16.0) g/dl Hct 36.9 L (37.0-47.0) % MCV 96.9 (80.0-98.0) fL MCH 32.3 (27.0-33.0) pg MCHC 33.3 (31.0-35.0) g/dl RDW 12.9 (11.0-16.0) % Plt Count 153 L (160-400) X10*3/uL MPV 10.9 (9.4-12.3) fL Immature Gran % (Auto) 1.2 H (0.0-0.4) % Neut % (Auto) 56.3 (45-73) % Lymph % (Auto) 35.5 (20-40) % [place] % (Auto) 6.6 (2-11) % Eos % (Auto) 0.3 (0-4) % Baso % (Auto) 0.1 (0-2) % Lymph # (Auto) 2.6 (1.2-4.9) X10*3/uL [place] # (Auto) 0.5 (0.1-1.2) X10*3/uL Eos # (Auto) 0.0 (0.0-0.4) X10*3/uL Baso # (Auto) 0.0 (0.0-0.2) X10*3/uL Abs Immat Gran (auto) 0.09 H (0.00-0.03) X10*3/uL Absolute Neuts (auto) 4.1 (2.0-8.3) x10*3/uL Absolute Nucleated RBC 0.000 (0.0-0.012) X10*3/uL Nucleated RBC % (auto) 0.0 (0.0-0.2) /100WBC PT (10.0-13.1) SEC INR (0.9-1.1) APTT (26.0-36.4) SEC Sodium 143 (135-145) mmol/L Potassium 3.2 L (3.3-5.1) mmol/L Chloride 104 (96-108) mmol/L Carbon Dioxide 31 H (22-29) mmol/L Anion Gap 11 L (12-20) BUN 9 (9-16) mg/dL Creatinine 0.82 (0.5-1.4) mg/dL Estim Creat Clear Calc 64.8 Estimated GFR > 60 Random Glucose 103 (60-115) mg/dL Lactic Acid (0.5-2.0) mmol/L Calcium 9.0 (8.4-10.2) mg/dL Total Bilirubin 0.6 (0.0-1.0) mg/dL AST 20 (5-31) U/L ALT 16 (0-31) U/L Alkaline Phosphatase 82 (39-117) U/L Troponin I High Sens 9.1 (<3.5-17.0) ng/L Total Protein 5.8 L (6.5-8.0) g/dL Albumin 3.6 (3.5-5.0) g/dL COVID-19 ([facility]) (Negative) COVID-19 Clin Com 05/13/22 05/13/22 05/13/22 Range/Units 23:38 23:38 23:38 WBC (4.8-10.8) X10*3/uL RBC (4.20-5.50) X10*6/uL Hgb (12.0-16.0) g/dl Hct (37.0-47.0) % MCV (80.0-98.0) fL MCH (27.0-33.0) pg MCHC (31.0-35.0) g/dl RDW (11.0-16.0) % Plt Count (160-400) X10*3/uL MPV (9.4-12.3) fL Immature Gran % (Auto) (0.0-0.4) % Neut % (Auto) (45-73) % Lymph % (Auto) (20-40) % [place] % (Auto) (2-11) % Eos % (Auto) (0-4) % Baso % (Auto) (0-2) % Lymph # (Auto) (1.2-4.9) X10*3/uL [place] # (Auto) (0.1-1.2) X10*3/uL Eos # (Auto) (0.0-0.4) X10*3/uL Baso # (Auto) (0.0-0.2) X10*3/uL Abs Immat Gran (auto) (0.00-0.03) X10*3/uL Absolute Neuts (auto) (2.0-8.3) x10*3/uL Absolute Nucleated RBC (0.0-0.012) X10*3/uL Nucleated RBC % (auto) (0.0-0.2) /100WBC PT 13.9 H (10.0-13.1) SEC INR 1.2 H (0.9-1.1) APTT 35.1 (26.0-36.4) SEC Sodium (135-145) mmol/L Potassium (3.3-5.1) mmol/L Chloride (96-108) mmol/L Carbon Dioxide (22-29) mmol/L Anion Gap (12-20) BUN (9-16) mg/dL Creatinine (0.5-1.4) mg/dL Estim Creat Clear Calc Estimated GFR Random Glucose (60-115) mg/dL Lactic Acid 0.6 (0.5-2.0) mmol/L Calcium (8.4-10.2) mg/dL Total Bilirubin (0.0-1.0) mg/dL AST (5-31) U/L ALT (0-31) U/L Alkaline Phosphatase (39-117) U/L Troponin I High Sens (<3.5-17.0) ng/L Total Protein (6.5-8.0) g/dL Albumin (3.5-5.0) g/dL COVID-19 ([facility]) (Negative) COVID-19 Clin Com 05/14/22 Range/Units 01:25 WBC (4.8-10.8) X10*3/uL RBC (4.20-5.50) X10*6/uL Hgb (12.0-16.0) g/dl Hct (37.0-47.0) % MCV (80.0-98.0) fL MCH (27.0-33.0) pg MCHC (31.0-35.0) g/dl RDW (11.0-16.0) % Plt Count (160-400) X10*3/uL MPV (9.4-12.3) fL Immature Gran % (Auto) (0.0-0.4) % Neut % (Auto) (45-73) % Lymph % (Auto) (20-40) % [place] % (Auto) (2-11) % Eos % (Auto) (0-4) % Baso % (Auto) (0-2) % Lymph # (Auto) (1.2-4.9) X10*3/uL [place] # (Auto) (0.1-1.2) X10*3/uL Eos # (Auto) (0.0-0.4) X10*3/uL Baso # (Auto) (0.0-0.2) X10*3/uL Abs Immat Gran (auto) (0.00-0.03) X10*3/uL Absolute Neuts (auto) (2.0-8.3) x10*3/uL Absolute Nucleated RBC (0.0-0.012) X10*3/uL Nucleated RBC % (auto) (0.0-0.2) /100WBC PT (10.0-13.1) SEC INR (0.9-1.1) APTT (26.0-36.4) SEC Sodium (135-145) mmol/L Potassium (3.3-5.1) mmol/L Chloride (96-108) mmol/L Carbon Dioxide (22-29) mmol/L Anion Gap (12-20) BUN (9-16) mg/dL Creatinine (0.5-1.4) mg/dL Estim Creat Clear Calc Estimated GFR Random Glucose (60-115) mg/dL Lactic Acid (0.5-2.0) mmol/L Calcium (8.4-10.2) mg/dL Total Bilirubin (0.0-1.0) mg/dL AST (5-31) U/L ALT (0-31) U/L Alkaline Phosphatase (39-117) U/L Troponin I High Sens (<3.5-17.0) ng/L Total Protein (6.5-8.0) g/dL Albumin (3.5-5.0) g/dL COVID-19 ([facility]) Negative (Negative) COVID-19 Clin Com See Note <Mehnaz Back MD - Last Filed: 05/14/22 01:09> Independent Interpretation I performed an independent interpretation of an: EKG <Chilo Mae MD - Last Filed: 05/14/22 05:37> Interpretation: Normal sinus rhythm heart rate 81 beats per minute LVH interventricular conduction defect no acute ST T wave changes poor progression of R-wave no acute ischemia <Chilo Mae MD - Last Filed: 05/14/22 05:37> Radiology Impression Discussion of test interpretation with radiology: I discussed test interpretation with the radiologist <Chilo Mea MD - Last Filed: 05/14/22 05:37> Radiologist Impression: [id number] [place] [address] CT Scan Report Signed Patient: Nilam Nguyen MR#: [id number] : 1950 Acct:[id number] Age/Sex: 71 / F ADM Date: 05/13/22 Loc: HO.ED Attending Dr: Ordering Physician: Chilo Mae MD Date of Service: 05/13/22 Procedure(s): CT chest wo IV con Accession Number(s): [id number] cc: Chilo Mae MD~ EXAMINATION: CT CHEST, ABDOMEN AND PELVIS WITHOUT CONTRAST. CLINICAL INFORMATION: Fall. Trauma . COMPARISON: 06/29/2020. TECHNIQUE: Multidetector volumetric imaging was performed from the thoracic inlet through the pubic symphysis without intravenous contrast. Sagittal and coronal reformatted images were obtained on the technologist workstation. This CT examination was performed using dose optimization techniques as appropriate, variously including the following: *Automated exposure control *Adjustment of mA and/or kV according to patient size (this includes techniques or standardized protocols for targeted exams where dose is matched to indication/reason for exam; i.e. extremities or head) *Use of iterative reconstruction technique DLP: 1302 mGy-cm FINDINGS: CHEST: Lungs: Small moderate left-sided pneumothorax is seen. This associated mild left basilar atelectasis. No dense consolidation or suspicious pulmonary nodularity. Central airways grossly unremarkable Mediastinum: Vascular calcification seen within the aorta. No suspicious or bulky adenopathy. Asymmetric enlargement of the left thyroid gland similar to the prior study Coronary Artery Calcification: Present Pericardium/Pleura: Small left pleural effusion. No pericardial effusion Chest Wall/Axilla: Unremarkable. ABDOMEN/PELVIS: Peritoneal Space:No significant free air or free fluid identified. Liver, Gallbladder, Biliary Tree: Diffuse fatty infiltration of the liver but no focal hepatic lesion nor biliary ductal dilatation.? The gallbladder is unremarkable with no evidence of radiopaque gallstones, gallbladder wall thickening, or obvious pericholecystic inflammatory changes. Pancreas: Unremarkable. Spleen: Unremarkable. Adrenal Glands: Unremarkable. Kidneys and Ureters: The kidneys are normal in size, shape, and attenuation. No hydronephrosis, hydroureter, or calculi seen. No perinephric stranding. Bladder: Unremarkable. Gastrointestinal Tract: Colon is redundant with scattered diverticulosis but no colonic wall thickening or pericolonic inflammatory change to suggest diverticulitis. Although there is prominent stool seen within the colon, there is a suggestion of some subtle pneumatosis in the cecum. I'm uncertain of this is artifactual due to the stool in this region. Clinical correlation with lactate level may be helpful Abdominal Wall: No significant hernia is appreciated. Lymphovascular Structures: Mild vascular calcification within the aorta iliac system. No bulky adenopathy. Pelvic Viscera: Unremarkable. Osseus Structures: Subtle nondisplaced fractures of the posterior left fifth, sixth, seventh and ninth rib fractures are seen. No significant right-sided rib fracture. Mild multilevel degenerative changes in the spine but no acute fracture or spondylolisthesis. CT/CT chest wo IV con IMPRESSION: 1.? Small to moderate left-sided pneumothorax with nondisplaced left-sided rib fractures as described above. 2.? There is a suggestion of some subtle pneumatosis in the cecum. I'm uncertain of this is artifactual due to the stool in this region. Clinical correlation with lactate level may be helpful. ? This critical result was discussed with Dr. Ritter at 05/13/2022 11:08 PM and it was ascertained that the content and urgency of the report was understood at the time of direct communication. ? [place] [address] CT Scan Report Signed Patient: Nilam Nguyen MR#: [id number] : 1950 Acct:[id number] Age/Sex: 71 / F ADM Date: 05/13/22 Loc: [facility].ED Attending Dr: Ordering Physician: Celena Murphy Date of Service: 05/13/22 Procedure(s): CT head/brain wo IV con Accession Number(s): [id number] cc: Celena Murphy~ EXAMINATION: CT HEAD WITHOUT CONTRAST CT CERVICAL SPINE WITHOUT CONTRAST CLINICAL INFORMATION: Fall. Head strike.? COMPARISON: 06/18/2020 TECHNIQUE: Multidetector CT imaging of the head and cervical spine was performed without the use of intravenous contrast. Multiplanar reformats are reviewed. This CT examination was performed using dose optimization techniques as appropriate, variously including the following: *Automated exposure control *Adjustment of mA and/or kV according to patient size (this includes techniques or standardized protocols for targeted exams where dose is matched to indication/reason for exam; i.e. extremities or head) *Use of iterative reconstruction technique DLP: 742 mGy-cm. FINDINGS: There is no evidence of acute intracranial hemorrhage or territorial infarction. No abnormal mass effect or midline shift is seen. Ball to white matter differentiation is well preserved. No extra-axial fluid collections are identified. No hydrocephalus. Proportional prominence of the ventricles and sulcal spaces is consistent with mild volume loss. Patchy periventricular and deep white matter hypoattenuation is consistent with moderate small vessel ischemic changes. No acute osseous or soft tissue abnormality. The mastoid air cells and visualized portions of the paranasal sinuses are well aerated. ?Atlantooccipital alignment is maintained. The vertebral bodies and posterior elements align normally. No acute fracture or subluxation. Vertebral body heights are maintained. Small endplate osteophytes present C5-C6 and C6-C7. Postsurgical changes of the left lateral posterior lamina C4, C5-C6, with resection of the spinous processes these levels. The paraspinal soft tissues are unremarkable. Imaged thorax reveals a moderate left pneumothorax. ? CT/CT head/brain wo IV con IMPRESSION: No acute intracranial pathology. No cervical spine fracture or malalignment. Moderate left pneumothorax. Referring team has been notified. Dictated By: Forrest Rangel MD Signed By: <Electronically signed by Forrest Rangel MD in OV> Patient: Nilam Nguyen MR#: [id number] : 1950 Acct:[id number] Age/Sex: 71 / F ADM Date: 05/13/22 Loc: HO.ED Attending Dr: Ordering Physician: Chilo Mae MD Date of Service: 05/14/22 Procedure(s): XR chest 1V Accession Number(s): [id number] cc: Chilo Mae MD~ EXAMINATION: XR CHEST CLINICAL INFORMATION: Chest tube placement COMPARISON: Earlier same day TECHNIQUE: Frontal view of the chest was obtained. FINDINGS: The chest tube in the lateral chest wall subcutaneous tissues has been removed. Trace left pneumothorax appears even smaller than on the prior exam. No parenchymal consolidation. No pleural effusion. Cardiomediastinal silhouette and pulmonary vascularity are within normal limits. No acute osseous abnormalities. XR/XR chest 1V IMPRESSION: *? Interval removal of the chest tube. *? Trace left pneumothorax appears smaller than on the prior exam. ? <Chilo Mae MD - Last Filed: 05/14/22 05:37> Critical Care Time Critical Care Time Critical Care Time: Yes <Chilo Mae MD - Last Filed: 05/14/22 05:37> Total Critical Care Time: 60 <Chilo Mae MD - Last Filed: 05/14/22 05:37> Attestation: The patient was critically ill with a high probability of imminent or life threatening deterioration. I spent greater than 65 minutes of discontinuous time evaluating the patient,delivering critical care at the bedside, discussing and evaluating pertinent data with consultants. Critical care time does not include time spent performing separately billable procedures or teaching. Total time spent performing critical care was 60 minutes. <Chilo Mae MD - Last Filed: 05/14/22 05:37> Discharge Plan Discharge Clinical Impression: Trauma, Closed traumatic fracture of ribs of left side with pneumothorax <Chilo Mae MD - Last Filed: 05/14/22 05:37> Patient Disposition: [facility] <Chilo Mae MD - Last Filed: 05/14/22 05:37> Transfer Details: [facility] ER /trauma <Chilo Mae MD - Last Filed: 05/14/22 05:37> [facility] ER /trauma <Mehnaz Back MD - Last Filed: 05/14/22 01:09> Prescriptions: No Action cyanocobalamin (vitamin B-12) 2,000 mcg tablet 2,000 mcg PO DAILY Qty: 90 0RF cholecalciferol (vitamin D3) 125 mcg (5,000 unit) capsule 125 mcg PO DAILY Qty: 90 0RF <Chilo Mae MD - Last Filed: 05/14/22 05:37> Interventions: Acute Care Transfer Worksheet (ED) Last Done: 05/14/22 04:49 <Chilo Mae MD - Last Filed: 05/14/22 05:37> Discharge Date/Time: 05/14/22 04:58 <Chilo Mae MD - Last Filed: 05/14/22 05:37>
[2022-05-13 21:11] LABS: Basophils Percent Auto 0.1 % (0-2); Eosinophils Percent Auto 0.3 % (0-4); Hematocrit 36.9 % (37.0-47.0); Hemoglobin 12.3 g/dl (12.0-16.0); Imm Gran Abs Auto 0.09 X10*3/uL (0.00-0.03); Imm Gran Pct Auto 1.2 % (0.0-0.4); Lymphocytes Absolute Auto 2.6 X10*3/uL (1.2-4.9); Lymphocytes Percent Auto 35.5 % (20-40); Mean Corpuscular HGB Conc 33.3 g/dl (31.0-35.0); Mean Corpuscular Hemoglobin 32.3 pg (27.0-33.0); Mean Corpuscular Volume 96.9 fL (80.0-98.0); Mean Platelet Volume 10.9 fL (9.4-12.3); Monocytes Absolute Auto 0.5 X10*3/uL (0.1-1.2); Monocytes Percent Auto 6.6 % (2-11); Neutrophils Absolute Auto 4.1 x10*3/uL (2.0-8.3); Neutrophils Percent Auto 56.3 % (45-73); Platelet Count 153 X10*3/uL (160-400); Red Blood Count 3.81 X10*6/uL (4.20-5.50); Red Cell Distribution Width 12.9 % (11.0-16.0); White Blood Count 7.2 X10*3/uL (4.8-10.8)
[2022-05-13 21:25] LABS: Alanine Aminotransferase 16 U/L (0-31); Albumin Level 3.6 g/dL (3.5-5.0); Alkaline Phosphatase 82 U/L (39-117); Anion Gap 11 (12-20); Aspartate Amino Transferase 20 U/L (5-31); Bilirubin Total 0.6 mg/dL (0.0-1.0); Blood Urea Nitrogen 9 mg/dL (9-16); Carbon Dioxide 31 mmol/L (22-29); Chloride 104 mmol/L (96-108); Creatinine Clr Calc Pharmacy 64.8; Estimated Glomerular Filt Rate > 60; Glucose Random 103 mg/dL (60-115); Potassium 3.2 mmol/L (3.3-5.1); Sodium 143 mmol/L (135-145); Total Protein 5.8 g/dL (6.5-8.0)
[2022-05-13 21:32] LABS: Troponin-I High Sensitivity 9.1 ng/L (<3.5-17.0)
[2022-05-13 21:42] VITALS: RESP 18
[2022-05-13] MEDS: Morphine Sulfate 4 MG/ML CARTRIDGE IVPUSH (21:42)
[2022-05-13] MEDS: ondansetron HCL 4 MG/2 ML VIAL IVPUSH ×2 (21:42→23:56)
[2022-05-13 21:50] VITALS: BP 140/80; PULSE 75; RESP 16; TEMP 36.7
--- NOTE | 2022-05-13 23:15 | PC.NURSE ---
Pt complaining of SOB while lying supine in bed. Pt stated that breathing is very painful. Pt SpO2 90% on room air. This RN placed pt on oxygen at 2 lpm via NC to improve SpO2 to 98%.
[2022-05-13 23:48] VITALS: BP 177/90; PULSE 81; RESP 18; TEMP 36.8; O2SAT 99
[2022-05-13 23:54] VITALS: RESP 20
[2022-05-13] MEDS: HYDROmorphone HCl 1 MG/ML SYRINGE IVPUSH (23:54)
[2022-05-13] MEDS: Ketamine HCl 500 MG/5 ML VIAL 200 MG IM (23:58)
[2022-05-14 00:03] LABS: Lactic Acid 0.6 mmol/L (0.5-2.0)
[2022-05-14 00:05] LABS: INTERNATIONAL NORM RATIO 1.2 (0.9-1.1); Prothrombin Time 13.9 SEC (10.0-13.1)
[2022-05-14 00:06] LABS: Partial Thromboplastin Time 35.1 SEC (26.0-36.4)
[2022-05-14] MEDS: HYDROmorphone HCl 1 MG/ML SYRINGE IVPUSH (01:18)
[2022-05-14 01:19] VITALS: BP 196/88; PULSE 106; RESP 13; O2SAT 99
[2022-05-14] MEDS: Lidocaine HCl 2 % MPF 5 ML VIAL 20 ML INFILTRATI (01:19)
--- NOTE | 2022-05-14 01:21 | MHC.EDTECH ---
Call out to [facility] transfer line @[phone] spoke to Natalie who will page out at trauma
[2022-05-14 01:48] LABS: COVID-19 Test Negative (Negative); IDNOW Serial# 6674DD1D
--- NOTE | 2022-05-14 02:21 | PC.NURSE ---
Pt tolerated the attempt at chest tube insertion well. Medicated with ketamine and dilaudid prior to start of procedure. After chest xray was ordered, it was determined that chest tube was not positioned within the pleural space. It was also determined by provider that the pneumothorax was mostly resolved during the procedure. Patient trialed off of supplemental O2; SpO2 decreased to 92% on room air. Pt placed on an oxymask by RT at 10 lpm to increase SpO2 to 100%. Pt was eventually able to be titrated down to 2 lpm via NC and able to maintain SpO2 at 97%. Plan is to transport pt to [facility] for trauma transfer. Waiting to reply from [facility].
[2022-05-14 03:08] VITALS: BP 123/66; PULSE 87; RESP 14; TEMP 37.2; O2SAT 95
--- NOTE | 2022-05-14 03:24 | PC.NURSE ---
Assumed care from JANIE Greco at 3:00am, Called [facility] Er gave report Pablo pt reports no pain at this time. No respiratory distress at this time. Will continue to monitor. Plan is for patient to be transferred to [facility], awaiting transport.
--- NOTE | 2022-05-14 03:26 | MHC.EDTECH ---
Call out to [facility] for ALS transfer to [facility] ER @[phone] ETA of two hours was given
--- NOTE | 2022-05-14 04:16 | ECG_ITS ---
Test Reason : SOB Blood Pressure : / mmHG Vent. Rate : 081 BPM Atrial Rate : 081 BPM P-R Int : 164 ms QRS Dur : 118 ms QT Int : 422 ms P-R-T Axes : 067 009 074 degrees QTc Int : 490 ms Normal sinus rhythm Left bundle branch block Abnormal ECG No previous ECGs available Referred By: Chilo Mae Electronically Signed By:KIERSTEN GRIER
[2022-05-14 04:34] VITALS: BP 124/58; PULSE 81; RESP 16; TEMP 36.8; O2SAT 97
--- NOTE | 2022-05-14 04:48 | PC.NURSE ---
pt a&o, no pain at transfer, pt responding appropriately to questions. Report given to EMS. Pt transferred to [facility].
== END 2022-05-14 04:58 | disposition short-term general hospital (02) ==
PROVIDERS: Physician Assistant; Emergency Provider Internal Medicine; PCP Internal Medicine
DX: S22.42XA Multiple fractures of ribs, left side, initial encounter for closed fracture (principal); J93.9 Pneumothorax, unspecified; R07.89 Other chest pain; R51.9 Headache, unspecified; M54.2 Cervicalgia; M54.6 Pain in thoracic spine; R10.9 Unspecified abdominal pain; W01.10XA Fall on same level from slipping, tripping and stumbling with subsequent striking against unspecified object, initial encounter; Y93.9 Activity, unspecified; Y92.002 Bathroom of unspecified non-institutional (private) residence as the place of occurrence of the external cause; Y99.9 Unspecified external cause status; Z20.822 Contact with and (suspected) exposure to COVID-19; Z20.828 Contact with and (suspected) exposure to other viral communicable diseases; Z79.899 Other long term (current) drug therapy
CPT/HCPCS: 36415; 70450; 71045; 71250; 72125; 74176; 80053; 83605; 84484; 85025; 85610; 85730; 87635; 93005; 96372; 96374; 96375; 96376; 99285; J1170; J2270; J2405

== ENCOUNTER 2022-06-23 11:29 | Outpatient (REF) | payer MEDICARE, SELFPAY ==
[2022-06-23 14:37] LABS: Anion Gap 12 (12-20); Blood Urea Nitrogen 10 mg/dL (9-16); Calcium 8.9 mg/dL (8.4-10.2); Carbon Dioxide 35 mmol/L (22-29); Chloride 99 mmol/L (96-108); Cholesterol 135 mg/dL; Estimated Glomerular Filt Rate > 60; Glucose Random 98 mg/dL (60-115); HDL Cholesterol 64 mg/dL; LDL Cholesterol Calculated 57 mg/dl; Potassium 3.5 mmol/L (3.3-5.1); Sodium 142 mmol/L (135-145); Triglycerides 72 mg/dL
[2022-06-23 14:49] LABS: B Type Natriuretic Peptide 20 pg/mL (<100)
[2022-06-23 15:01] LABS: Vitamin B12 799 pg/mL (200-900); Vitamin D 25-OH Total 18.8 ng/mL (>30)
== END 2022-06-23 11:30 | disposition home or self-care (01) ==
LOC: HO.HMGCLDS 11:29
PROVIDERS: PCP Internal Medicine; Visit Provider Internal Medicine
DX: E53.8 Deficiency of other specified B group vitamins (principal); I50.9 Heart failure, unspecified; E55.9 Vitamin D deficiency, unspecified
CPT/HCPCS: 36415; 80048; 80061; 82306; 82607; 83880

== ENCOUNTER → 2022-06-25 12:49 | Outpatient (REF) | payer MEDICARE, SELFPAY ==
--- NOTE | 2022-06-25 12:51 | CA_ITS ---
Transthoracic Echocardiogram Patient (Last, First, Middle): Nilam Nguyen A Gender: Female Date of : 1950 Age: 71 Procedure Date: 06/25/2022 Procedure Type: Transthoracic Echocardiogram Location: OP Height: 162.56 cm Weight: 83.92 kg BSA: 1.89 m2 Heart Rate: 87 bpm BP: 150 / 75 mmHg Farm Field Manager: LYNETTE Referring MD: Chichi Coats MD Symptoms: I44.7 - Left bundle-branch block, unspecified Study Quality: Adequate/Contrast ECG Rhythm: Sinus tachycardia Conclusions: - The left ventricular systolic function is mildly decreased. The visually estimated ejection fraction is between 45-50%. - No obvious valvular pathology seen on this study. Findings Procedure Information Contrast agent, definity, is being given per protocol without apparent complications. Left Ventricle Normal left ventricular cavity size. The left ventricular systolic function is mildly decreased. The visually estimated ejection fraction is between 45 50%. There is paradoxical septal motion consistent with a left bundle branch block. Diastolic function is normal for age. There is mild septal asymmetric hypertrophy. Right Ventricle Normal right ventricular cavity size and systolic function. Atria Both atria are normal in size. Aortic Valve The aortic valve was not well visualized. There is no aortic valve stenosis. There is no aortic valve regurgitation. Mitral Valve There is mild mitral annular calcification. There is no mitral valve regurgitation. There is no mitral valve stenosis. Pulmonic Valve The pulmonic valve is likely normal. Tricuspid Valve Normal tricuspid valve structure. There is trace tricuspid valve regurgitation. Tricuspid regurgitation envelope is inadequate for calculation of right ventricular systolic pressure. Great Vessels The asc aorta is normal in size. Venous The inferior vena cava is normal in size and collapses greater than 50% with inspiration. Pericardium/Pleural There is no evidence of pericardial effusion. Prior Study Comparison No prior study available for comparison. Recommendations, Care & Conclusions No obvious valvular pathology seen on this study. Measurements 2D Linear Measurements IVSd: 1.49 0.6-0.9/0.6-1.0 cm LVIDd: 3.94 3.9-5.3/4.2-5.9 cm LVIDd Index: 2.08 2.4-3.2/2.2-3.1 cm/m2 LVIDs: 2.57 2.0-3.6 cm LVPWd: 0.95 0.7-1.1 cm LA Diam: 2.40 2.7-3.8/3.0-4.0 cm LAIDs Index: 1.27 1.5-2.3 cm/m2 LV Mass: 206.35 67-162/88-224 g LV Mass Index: 109.18 43-95/49-115 g/m2 LVOT Diam: 2.00 3.0+(-)1.3 cm 2D Systolic Function EF 4C: 35.40 >55% EF 2C: 63.30 >55% EF BiP: 51.00 >55% Mitral Valve MV Pk E: 0.60 MV PK A: 0.91 MV Decel Time: 261.00 E/A: 0.70 E'Lateral: 7.29 E'Medial: 4.03 E/E' Med: 15.00 E/E' Lat: 8.30 PHT: 76.00 MVA PHT: 2.89 Decel Dupage: 2.32 Aortic Valve AoV Pk Silvino: 1.38 AoV Mn Silvino: 1.01 AoV VTI: 0.26 AoV Pk Grad: 8.00 Aov Mn Grad: 5.00 DERRICK Cont.VTI: 2.26 LVOT LVOT Pk Silvino: 0.95 LVOT Mn Silvino: 0.70 LVOT VTI: 0.19 LVOT Pk Grad: 4.00 LVOT Mn Grad: 2.00 LVOT Diam: 2.00 LVOT Area: 3.14 Diastolic Function MV Pk E: 0.60 MV Pk A: 0.91 E/A: 0.70 E'Medial: 4.03 E/E' Med: 15.00 E' Laterial: 7.29 E/E' Lat: 8.30 Right Ventricle TAPSE (mm): 18.30 TVS' Silvino: 11.70 Tricuspid Valve RA Press: 3.00 Great Vessels Aorta Sinus of Valsalva: 3.40 2.0-3.5 cm Ao Asc: 3.10 2.1-3.4 cm Pulmonary Valve PV Pk Silvino: 1.36 Peak PV Grad: 7.00 Updated in Other Vendor System with Status of Final Ousmane Chan MD electronically signed on 06/27/2022 11:27:39 AM with status of Final
== END ==
LOC: HO.CARD 12:49
PROVIDERS: PCP Internal Medicine; Visit Provider Internal Medicine
DX: I44.7 Left bundle-branch block, unspecified (principal); I50.9 Heart failure, unspecified
CPT/HCPCS: 93306; Q9957

== ENCOUNTER 2022-07-31 09:37 | Emergency (ER) | payer MEDICARE, SELFPAY ==
--- NOTE | ~2022-07-31 | US_ITS ---
EXAMINATION: US VENOUS ULTRASOUND WITH DOPPLER LOWER EXTREMITY, LEFT CLINICAL INFORMATION: Left calf swelling and pain COMPARISON: None available. TECHNIQUE: Ultrasound of the deep veins is performed from the hip to the calf with compression sonography and color and pulse Doppler assessment. Spectral analysis with color-flow imaging is performed. FINDINGS: There is normal venous compression and respiratory variation and augmented flow. The visualized common femoral vein, superficial femoral vein, profunda femoral vein, popliteal vein, and the trifurcation region shows no evidence of deep venous thrombosis. The peroneal vein is not visualized There is no significant popliteal fossa cyst. There is edema visualized in the left calf. If the patient's symptoms persist, followup ultrasound in 5 days 7 days might be of value to exclude proximal propagation from a non-visualized calf vein. US/US venous duplex LE IMPRESSION: No DVT demonstrated in the left lower extremity. Left calf edema.
[2022-07-31 09:53] VITALS: BP 149/84; PULSE 90; RESP 16; TEMP 36.1; O2SAT 97; BMI 31.1
--- NOTE | 2022-07-31 11:02 | ED.EXTPRO ---
HPI - Extremity Problem General Chief complaint: Extremity Problem Stated complaint: L leg inj Time Seen by Provider: 07/31/22 11:31 Mode of arrival: EMS History of Present Illness HPI Narrative: patient complains of fall injury sustained about 5 days ago, she fell and scraped and cut her right knee which now has some redness and some watery discharge from small wound in skin over patella , she also complains of left lower leg and calf pain which started when she fell and she did feel a sharp pain in the back of her leg when she fell She denies any other injury she had in her head she has no neck pain no back pain no abdominal pain no chest pain, she did not faint or lose consciousness She has no chest pain no pain with deep breath no shortness of breath, no head strike no neck pain no back pain Related Data Home Medications Medication Instructions Recorded Confirmed gabapentin 100 mg capsule 100 mg PO TID 06/10/22 07/01/22 Previous Rx's Medication Instructions Recorded cholecalciferol (vitamin D3) 125 125 mcg PO DAILY #90 caps 11/17/20 mcg (5,000 unit) capsule cyanocobalamin (vitamin B-12) 2,000 mcg PO DAILY #90 tabs 11/17/20 2,000 mcg tablet albuterol sulfate 90 mcg/actuation 2 puff inhalation Q6H PRN 06/10/22 aerosol inhaler shortness of breath or wheezing #8.5 grams furosemide 20 mg tablet 20 mg PO DAILY #30 tabs 06/10/22 lidocaine 5 % topical patch 2 patch topical DAILY #60 ea 06/10/22 cephalexin 500 mg tablet 500 mg PO QID 7 days #28 tabs 07/31/22 doxycycline hyclate 100 mg capsule 100 mg PO BID 7 days #14 caps 07/31/22 Allergies Allergy/AdvReac Type Severity Reaction Status Date / Time Iodinated Contrast Media Allergy Anaphylaxis Verified 07/31/22 09:53 [IV Contrast Dye] [facility] Past Medical History Source: nursing notes reviewed Medical History Annual physical exam Cervical myelopathy LBBB (left bundle branch block) 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 Tinnitus Tobacco abuse Vertigo Vitamin B 12 deficiency Vitamin D deficiency Surgical History H/O gastric bypass History of appendectomy Family History Family History Father Diabetes Mother HTN (hypertension) Social History Social History Household Members Other:: lives mother, sisters Housing: House Alcohol intake: former Patient Tobacco Use Status: Current everyday Tobacco user Tobacco use type: Cigarette Cigarettes Per Day: 4 Smoked in Last 30 Days: Yes e-Cigarette/Vaping Use: Never Used Use of substances other than those prescribed or required for medical reasons: No Advance Directives: No Advance Directives Information Provided: Yes Current occupational status: retired Cognitive needs: No Hearing needs: No Vision needs: Yes Physical Exam Vital Signs: Vital Signs: Last Vital Signs Temp 97 F 07/31/22 09:53 Pulse 90 07/31/22 09:53 Resp 16 07/31/22 09:53 BP 149/84 H 07/31/22 09:53 Pulse Ox 97 07/31/22 09:53 O2 Del Method Room Air 07/31/22 09:53 BMI result Body Mass Index 31.1 general appearance is comfortable no acute distress Head is normocephalic atraumatic Neck is supple Respiratory no distress Chest wall nontender Extremities full range of motion x4 including left leg and right knee Right knee exam there is an abrasion/ wound the size of a quarter over the patella which is not fluctuant or indurated, not swollen but there is some scant watery discharge, there is surrounding redness as well as some tenderness to the touch and some warmth The right knee itself is not swollen there is no effusion the redness is limited to the area around the small wound in front of the patella, it extends 180 it flexes to 90, patient can bear weight easily Left leg there was some swelling and tenderness to the posterior knee as well as the calf area, skin was otherwise normal in color, neurovascular intact distal on both extremities, left leg had full range of motion no redness no warmth no evidence of cellulitis Other extremities normal Neuro no focal motor sensory deficits Course Course Course Narrative: This is a rapid medical exam. deferred additional HPI, ROS, PE to primary provider, 72 yo female here with left calf pain/knee pain. US ordered. VSS the ultrasound of the left leg did not show any DVT, it did show some edema and swelling consistent with what was seen on physical exam which is likely resulted from a strained muscle in the trauma of her fall several days ago There is no redness no warmth no signs of cellulitis in the left leg The small area of redness around the small abrasion in the the right anterior knee is treated with antibiotics as it may be an early cellulitis, no evidence of septic joint, patient can bear weight, she can extend fully flex past 90 no redness or warmth except around the skin wound on the patella Patient is able to ambulate with her walker and to take care for activities of daily life at home and she is discharged Medications Administered Discontinued Medications Generic Name Dose Route Start Last Admin Trade Name Freq PRN Reason Stop Dose Admin Cephalexin HCl 500 mg 07/31/22 11:54 07/31/22 12:05 Cephalexin 500 Mg Capsule PO 07/31/22 11:55 500 mg ONCE ONE Administration Diphtheria/Tetanus/Acell Pertussis 0.5 ml 07/31/22 12:24 07/31/22 12:28 Diphth,Pertus(Acell),Tet Adult 0.5 Ml Syringe IM 07/31/22 12:25 0.5 ml .ONCE ONE Administration Doxycycline Monohydrate 100 mg 07/31/22 11:54 07/31/22 12:05 Doxycycline Monohydrate 100 Mg Capsule PO 07/31/22 11:55 100 mg ONCE ONE Administration Discharge Plan Discharge Clinical Impression: Cellulitis, Muscle strain of left lower extremity Patient Disposition: Home, Self-Care Additional Instructions: ultrasound of left leg did not show any DVT or blood clot There is no sign of any infection in the left lower leg so swelling is likely from trauma from her fall, likely a muscle strain and should resolve in the next couple of weeks If it remains swollen and uncomfortable in a week you may need a repeat ultrasound so schedule an appointment with your doctor who may order a repeat ultrasound of the left leg if it remains swollen and painful The small wound on the right knee that is draining fluid in is red is treated with antibiotic for possible skin infection both doxycycline and Keflex to cover 2 different types of bacteria Return any time for worse pain and swelling, spreading redness, fever, red stripe up leg, any sign of worsening of no infection or any worse condition or any concerns It is a good idea to take probiotics with your antibiotics as they may help prevent antibiotic associated diarrhea You got a tetanus shot today Prescriptions: New doxycycline hyclate 100 mg capsule 100 mg PO BID 7 Days Qty: 14 0RF cephalexin 500 mg tablet 500 mg PO QID 7 Days Qty: 28 0RF No Action cyanocobalamin (vitamin B-12) 2,000 mcg tablet 2,000 mcg PO DAILY Qty: 90 0RF cholecalciferol (vitamin D3) 125 mcg (5,000 unit) capsule 125 mcg PO DAILY Qty: 90 0RF gabapentin 100 mg capsule 100 mg PO TID furosemide 20 mg tablet 20 mg PO DAILY Qty: 30 2RF albuterol sulfate 90 mcg/actuation HFA aerosol inhaler 2 puff inhalation Q6H PRN (Reason: shortness of breath or wheezing) Qty: 8.5 2RF lidocaine 5 % adhesive patch,medicated 2 patch topical DAILY Qty: 60 1RF Rx Instructions: leave on most painful area for up to 12 hrs Interventions: ED Discharge Assessment Last Done: 07/31/22 13:01 Discharge Date/Time: 07/31/22 13:02
[2022-07-31] MEDS: Doxycycline Monohydrate 100 MG CAPSULE PO (12:05)
[2022-07-31] MEDS: cephALEXin 500 MG CAPSULE PO (12:05)
[2022-07-31] MEDS: Diphth,Pertus(ACell),Tet Adult 0.5 ML SYRINGE IM (12:28)
== END 2022-07-31 13:02 | disposition home or self-care (01) ==
PROVIDERS: Emergency Provider Emergency Medicine; PCP Internal Medicine
DX: S80.812A Abrasion, left lower leg, initial encounter (principal); L03.116 Cellulitis of left lower limb; R60.0 Localized edema; F17.210 Nicotine dependence, cigarettes, uncomplicated; Y29.XXXA Contact with blunt object, undetermined intent, initial encounter; Y93.9 Activity, unspecified; Y92.9 Unspecified place or not applicable; Y99.9 Unspecified external cause status; Z79.899 Other long term (current) drug therapy; Z71.6 Tobacco abuse counseling; Z23 Encounter for immunization
CPT/HCPCS: 87070; 87205; 90471; 90715; 93971; 99284

== ENCOUNTER 2023-06-26 11:31 | Outpatient (REF) | payer MEDICARE, SELFPAY ==
--- NOTE | ~2023-06-26 | MM_ITS ---
EXAMINATION: MM SCREENING DIGITAL BREAST TOMOSYNTHESIS, BILATERAL CLINICAL INFORMATION: Screening. Asymptomatic. COMPARISON: Mammography: This study is compared with prior exams dating back to 2016. TECHNIQUE: Digital breast tomosynthesis is performed in both the craniocaudal and mediolateral oblique views along with computer-aided detection (CAD). Synthesized 2D images are generated from the tomosynthesis. FINDINGS: There are scattered areas of fibroglandular density (ACR BI-RADS breast composition Category b). There are no significant masses, abnormal calcifications, or other abnormalities. Few, bilateral benign calcifications are present. MM/MM tomosynthesis screening BI IMPRESSION: No mammographic evidence of malignancy. ASSESSMENT: BI-RADS BI-RADS 2 - Benign Findings RECOMMENDATION: Routine annual mammography screening. 1 year F/U This examination should not preclude the clinical evaluation of a suspicious palpable abnormality. This patient's information was entered into a reminder system with a target due date for their next mammogram.
== END 2023-06-26 11:32 | disposition home or self-care (01) ==
LOC: HO.MAMMO 11:31
PROVIDERS: PCP Internal Medicine; Visit Provider Internal Medicine
DX: Z12.31 Encounter for screening mammogram for malignant neoplasm of breast (principal)
CPT/HCPCS: 77063; 77067

== ENCOUNTER → 2023-06-26 11:45 | Outpatient (BNV) | payer MEDICARE, SELFPAY | PROVIDERS: PCP Internal Medicine; Visit Provider Radiology Diagnostic Radiology | DX: Z12.31 Encounter for screening mammogram for malignant neoplasm of breast (principal) | CPT/HCPCS: 77063; 77067 ==

== ENCOUNTER 2024-02-24 09:50 | Outpatient (AMB) | payer MEDICARE, SELFPAY ==
--- NOTE | 2024-02-24 09:53 | AM.OFFWIN_ITS ---
Intake Vital Signs 02/24/24 09:55 Weight 196 lb BP 128/60 Blood Pressure Location Rt brachial Position Sitting Pulse 107 H Pulse Source Pulse Oximeter Pulse Oximetry (%) 97 Oxygen Delivery Method Room Air Intake Visit Reasons: EP sciatic nerve pain on LT leg Intake Note: Patient here for sciatic pain that has been present for about 2 weeks and worsening, she states she did recently had a fall and hit her lower right leg. Patient Tobacco Use Status: Current everyday Tobacco user Allergies Iodinated Contrast Media [IV Contrast Dye] Allergy (Verified 02/24/24 09:57) Anaphylaxis Medication List - Last Reconciled 02/24/24 by Ladonna Chew NP albuterol sulfate 90 mcg/actuation 2 puffs inhalation Q6H PRN Do you need a note to return to daycare/school/sports/work: No HPI EP sciatic nerve pain on LT leg HPI Details This note is constructed using voice recognition software. While every effort has been made to ensure accuracy, aerial planting and cultivation manager errors may have been included. The patient is a 73 year old female who presents to the clinic today with left leg pain, concern for sciatica. She reports she has had this in the past, but typically it resolves with conservative measures. She reports that about 2 weeks ago she bumped her right lower leg, which she feels is unrelated, but wanted to mention it as it did lead to her having a fall. About a week ago she developed pain in the left buttock region, radiating down her left leg. She denies numbness and tingling. She reports she is not on any of her routine medications that were previously ordered. She denies any loss of control of bladder or bowel. She reports that the pain has made it where it is difficult for her to put her legs up, which makes her legs swell more than normal. She took Tylenol without much improvement. She reports that due to the increase amount of pain, she has been borrowing her sister's walker. 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 Tinnitus Tobacco abuse Vertigo Vitamin B 12 deficiency Vitamin D deficiency Surgical History H/O gastric bypass History of appendectomy Family History Father Diabetes Mother HTN (hypertension) Social History Household Members Other:: lives mother, sisters Housing: House Alcohol intake: former Patient Tobacco Use Status: Current everyday Tobacco user Tobacco use type: Cigarette Cigarettes Per Day: 4 e-Cigarette/Vaping Use: Never Used Current occupational status: retired Cognitive needs: No Hearing needs: No Vision needs: Yes Review of Systems Const All systems reviewed & are unremarkable except as noted in HPI and below Physical Exam Vital Signs: Last Vital Signs Pulse 107 H 02/24/24 09:55 BP 128/60 02/24/24 09:55 Pulse Ox 97 02/24/24 09:55 Oxygen Delivery Method Room Air 02/24/24 09:55 Const General: cooperative, healthy appearing, comfortable, no acute distress and well developed Orientation/consciousness: patient oriented x3 HEENT Head: Yes normal to inspection Ears: hearing grossly normal bilaterally General nose exam: Normal external nose present Face and sinus: Yes normal facial exam Resp Effort & Inspection: normal respiratory effort and able to speak in complete sentences Back/Spine/Pelvis Other: Left sciatic notch tenderness. Positive SLR, negative well SLR. Ambulating using walker. Strength 5/5, equal bilaterally. Distal neurovascular exam intact. Skin General skin exam: no rashes or lesions noted Neuro General: patient oriented x3 Extrem Other: Nonpitting bilateral lower extremity edema. Assessment & Plan Assessment & Plan (1) Piriformis syndrome of left side: Code(s): G57.02 - Lesion of sciatic nerve, left lower limb Plan: Discussed treatment options, we will try a 3 day burst of prednisone for anti- inflammatory effects, as well as 3 nights of muscle relaxers. Patient would like to minimize muscle relaxer use if possible. Advised follow up as needed with PCP or in clinic with worsening or failure to resolve. Plan See above for full details and plan. Medications: New prednisone 40 mg (2 x 20 mg) PO DAILY 3 days 6 tabs 0RF cyclobenzaprine 5 mg PO BEDTIME 3 days PRN 3 tabs 0RF Muscle Spasm Discontinued cyanocobalamin (vitamin B-12) Discontinued Reason: Patient no longer taking 2,000 mcg PO DAILY 90 tabs 0RF cholecalciferol (vitamin D3) Discontinued Reason: Patient Refused 125 mcg PO DAILY 90 caps 0RF lidocaine 5% leave on most painful area for up to 12 hrs Discontinued Reason: Patient no longer taking 2 patches topical DAILY 60 ea 1RF furosemide Discontinued Reason: Patient no longer taking 20 mg PO DAILY 30 tabs 2RF Coding Level of Care Code Est Pt Level 3 (30545) Diagnoses Piriformis syndrome of left side G57.02
[2024-02-24 09:55] VITALS: BP 128/60; PULSE 107; O2SAT 97
== END 2024-02-24 10:22 | disposition home or self-care (01) ==
PROVIDERS: PCP Internal Medicine; Visit Provider Registered Nurse
DX: G57.02 Lesion of sciatic nerve, left lower limb (principal)

== ENCOUNTER → 2024-02-24 09:50 | Outpatient (BNVA) | payer MEDICARE, SELFPAY | PROVIDERS: PCP Internal Medicine; Visit Provider Registered Nurse | DX: G57.02 Lesion of sciatic nerve, left lower limb (principal) | CPT/HCPCS: 99212 ==

== ENCOUNTER 2024-05-24 10:00 | Outpatient (AMB) | payer MEDICARE, SELFPAY ==
[2024-05-24 10:02] VITALS: BP 122/64; PULSE 69; RESP 18; TEMP 36.7; O2SAT 97; BMI 31.8
--- NOTE | 2024-05-24 10:02 | A.OFFPC_ITS ---
Vital Signs 05/24/24 10:02 Height 5 ft 4 in Weight 185 lb BMI 31.8 BP 122/64 Blood Pressure Location Rt brachial Position Sitting Respiration 18 Pulse 69 Pulse Source Pulse Oximeter Temp 98.0 F Temp Source Oral Pulse Oximetry (%) 97 Oxygen Delivery Method Room Air Intake Visit Reasons: Annual PE Intake Note: Pt is here today for PE. Allergies Iodinated Contrast Media [IV Contrast Dye] Allergy (Verified 05/24/24 10:28) Anaphylaxis Medication List - Last Reconciled 05/24/24 by Chichi Coats MD No Known Home Meds Tobacco use date assessed: 05/24/24 Fall risk assessment: 2 + Falls in past year Last assessed Fall Risk: 05/24/24 Dental Screening Dental Screen Date: 05/24/24 Did you have a dental visit in the last 12 months?: No Did you have a dental problem in the last 6 months where you did not have access to dental care?: No Was dental information given to patient?: Patient declined HPI Annual PE HPI Details Pt presents for PE. Pt c/o chronic LBP worse when standing for more than 5 minutes and bilateral leg pain and weakness worse when walking for the last few months. Patient denies any change in the bladder or bowel function. The tingling sensation of her both hands improve after C-spine surgery. Patient also complains of chronic positional vertigo on and off, worse when getting up in bed. She has been limiting her walking because of the vertigo. 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 Vertigo Tobacco abuse Annual physical exam Tinnitus Surgical History H/O gastric bypass History of appendectomy Family History Father Diabetes Mother HTN (hypertension) Social History Household Members Other:: lives mother, sisters Housing: House Alcohol intake: former Patient Tobacco Use Status: Former Tobacco user (2 weeks ago) Tobacco use type: Cigarette Cigarettes Per Day: 4 e-Cigarette/Vaping Use: Never Used service: No Current occupational status: retired Cognitive needs: No Hearing needs: No Vision needs: Yes Questionnaire PHQ-9 Over the last 2 weeks, how often have you been bothered by any of the following problems? 1. Little interest or pleasure in doing things: several days 2. Feeling down, depressed, or hopeless: several days 3. Trouble falling or staying asleep, or sleeping too much: several days 4. Feeling tired or having little energy: several days 5. Poor appetite or overeating: not at all 6. Feeling bad about yourself - or that you are a failure or have let yourself or your family down: not at all 7. Trouble concentrating on things, such as reading the newspaper or watching television: not at all 8. Moving or speaking so slowly that other people could have noticed. Or the opposite - being so fidgety or restless that you have been moving around a lot more than usual: not at all 9. Thoughts that you would be better off or of hurting yourself in some way: not at all Total score: 4 Depression Screening Interpretation: Negative Depression Screening Done: Yes 90508 - PHQ-9 Billing: Yes Source: Developed by Drs. Geovanny Ayala, Stacy Cool, Nick Quiles and colleagues, with an educational shanika from [employer]. Thrive Questionnaire Date Thrive assessed: 05/24/24 I am a: Patient What is your living situation today?: I have a steady place to live Within the past 12 months, did the food you bought not last and you didn't have the money to get more?: Sometimes True Within the past 12 months, did you worry whether your food would run out before you got money to buy more?: Sometimes True Do you have trouble paying for medicines?: No Do you have trouble getting transportation to medical appointments?: Yes Do you have trouble paying your heating and electricity bill?: I choose not to answer this question Do you have trouble taking care of your child, family member or friend?: I choose not to answer this question Do you have trouble with day-to-day activities such as bathing, preparing meals, shopping, managing finances, etc.?: Yes Are you currently unemployed and looking for a job?: No Are you interested in more education?: No Currently or been in a relationship where the following occur: No concerns reported THRIVE Score: 3 AUDIT C Alcohol Use Questionnaire (AUDIT-C) 1. How often do you have a drink containing alcohol?: Never 3. How often do you have six or more drinks on one occasion?: Never Total Score: 0 SETH-7 AMB Questionnaire SETH-7 Date SETH - 7 assessed: 05/24/24 Feeling nervous, anxious, or on edge: 0 = Not at all Not being able to stop or control worryin = Not at all Worrying too much about different things: 0 = Not at all Trouble relaxin = Not at all Being so restless that it is hard to sit still: 0 = Not at all Becoming easily annoyed or irritable: 0 = Not at all Feeling afraid as if something awful might happen: 0 = Not at all Total SETH-7 score (0-4 normal; 5-9 mild; 10-14 moderate; 15-21 severe): 0 Source: Developed by Drs. Geovanny Ayala, Stacy Cool, Nick Quiles and colleagues, with an educational shanika from [employer]. SETH-7 Assessment Billing SETH-7 Assessment Tool: SETH-7 Assessment 40015 Review of Systems Const All systems reviewed & are unremarkable except as noted in HPI and below Eyes Reports no additional complaints ENT Reports no additional complaints Card Reports no additional complaints Resp Reports no additional complaints GI Reports no additional complaints Reports no additional complaints Physical exam (Primary Care) Vital Signs: Last Vital Signs Temp 98.0 F 05/24/24 10:02 Pulse 69 05/24/24 10:02 Resp 18 05/24/24 10:02 BP 122/64 05/24/24 10:02 Pulse Ox 97 05/24/24 10:02 Oxygen Delivery Method Room Air 05/24/24 10:02 BMI result Body Mass Index 31.8 Tobacco/Smoking Status: Tobacco use Status Tobacco use date assessed 05/24/24 05/24/24 10:33 Patient Tobacco Use Status Former Tobacco user (2 weeks 05/24/24 10:33 ago) Tobacco use type Cigarette 05/24/24 10:04 e-Cigarette/Vaping Use Never Used 05/24/24 10:04 PHQ-9: PHQ-9 Score PHQ-9: Total score 4 05/24/24 10:34 Depression Screening Interpretation: Negative Thrive Assessment: Date of Thrive Assessment Date Thrive assessed 05/24/24 05/24/24 10:34 Currently or been in a relationship where the following occur: No concerns reported Const General: no acute distress HENMT Head: Yes normal to inspection Ears: TM's normal bilaterally Face and sinus: Yes normal facial exam Mouth: Normal oral and palatal mucosa present Eyes General: appearance normal, both eyes and all related structures Neck Neck: Yes no lymphadenopathy and Yes supple Resp Effort & Inspection: normal respiratory effort Auscultation: diminished lung sounds Cardio Rhythm: regular rhythm Heart sounds: S1 normal heart sound present and S2 normal heart sound present GI Inspection: Yes normal to inspection Palpation (GI): Soft to palpation Percussion: Yes normal to percussion Auscultation: normal bowel sounds Back/Spine/Pelvis Other: Decreased range of motion lumbar spine, lower lumbar spinal and paraspinal tenderness, bilaterally motor strength 4/5, deep tendon reflexes 2+ bilaterally, Neuro Romberg Test: Negative Coding Level of Care Code Est Pt Prev Care >65y(22082) Diagnoses Smoker F17.200 Annual physical exam Z00.00 Vitamin D deficiency E55.9 Vitamin B 12 deficiency E53.8 Spinal stenosis M48.00 Vertigo R42 Additional Codes SETH-7 Assessment Billing - SETH-7 Assessment Tool: SETH-7 Assessment 81235 ([id number]) PHQ-9 - 21823 - PHQ-9 Billing: Yes ([id number]) Assessment & Plan Assessment & Plan (1) Smoker: Comment: 1 PPD x 40yrs Code(s): F17.200 - Nicotine dependence, unspecified, uncomplicated Category: Social Hx Plan: Refer to lung cancer screening program, patient quit smoking 2 weeks ago (2) Annual physical exam: Comment: Patient refused colonoscopy, will do Cologuard June 29 Code(s): Z00.00 - Encounter for general adult medical examination without abnormal findings Category: Medical Plan: Well-balanced diet regular physical activity discussed with the patient she will have a fasting blood work today. She is up-to-date with the mammogram. Patient declined colonoscopy or Cologuard (3) Vitamin D deficiency: Code(s): E55.9 - Vitamin D deficiency, unspecified Category: Medical Plan: Check vitamin-D level (4) Vitamin B 12 deficiency: Code(s): E53.8 - Deficiency of other specified B group vitamins Category: Medical Plan: Check vitamin B12 level (5) Spinal stenosis: Code(s): M48.00 - Spinal stenosis, site unspecified Category: Medical Plan: Obtain lumbar spine x-ray and refer to physical therapy if her symptoms persist lumbar spine MRI will be obtained (6) Vertigo: Code(s): R42 - Dizziness and giddiness Category: Medical Plan: For chronic benign positional vertigo patient will be referred to vestibular therapy Orders: Orders Complete Blood Count Auto Diff Today E53.8 - Deficiency of other specified B group vitamins, E55.9 - Vitamin D deficiency, unspecified, G95.9 - Disease of spinal cord, unspecified, Z00.00 - Encounter for general adult medical examinati on without abnormal findings Lipid Panel Today E53.8 - Deficiency of other specified B group vitamins, E55.9 - Vitamin D deficiency, unspecified, G95.9 - Disease of spinal cord, unspecified, Z00.00 - Encounter for general adult medical examination without abnormal findings TSH reflex Free T4 Today E53.8 - Deficiency of other specified B group v itamins, E55.9 - Vitamin D deficiency, unspecified, G95.9 - Disease of spinal cord, unspecified, Z00.00 - Encounter for general adult medical examination without abnormal findings Vitamin B12 and Folate Today E53.8 - Deficiency of other specified B group vitamins, E55.9 - Vitamin D deficiency, unspecified, G95.9 - Disease of spinal cord, unspecified, Z00.00 - Encounter for general adult medical examination without abnormal findings XR lumbar spine 2-3V Today M48.00 - Spinal stenosis, site unspecified PT Evaluation and Treatment Today R42 - Dizziness and giddiness Comprehensive [place]. Panel Fast Today E53.8 - Deficiency of other specified B group vitamins, E55.9 - Vitamin D deficiency, unspecified, G95.9 - Disease of spinal cord, unspecified, Z00.00 - Encounter for general adult medical examination without abnormal findings Vitamin D 25-OH Total Today E53.8 - Deficiency of other specified B group vitamins, E55.9 - Vitamin D deficiency, unspecified, G95.9 - Disease of spinal cord, unspecified, Z00.00 - Encounter for general adult medical examination wi thout abnormal findings PT Evaluation and Treatment Today M48.00 - Spinal stenosis, site unspecified Referrals Thoracic/General Surgery Referral F17.200 - Nicotine dependence, unspecified, uncomplicated
== END 2024-05-24 11:07 | disposition home or self-care (01) ==
LOC: HO.HMCC 10:01
PROVIDERS: PCP Internal Medicine; Visit Provider Internal Medicine
DX: F17.200 Nicotine dependence, unspecified, uncomplicated (principal); Z00.00 Encounter for general adult medical examination without abnormal findings; E55.9 Vitamin D deficiency, unspecified; E53.8 Deficiency of other specified B group vitamins; M48.00 Spinal stenosis, site unspecified; R42 Dizziness and giddiness

== ENCOUNTER → 2024-05-24 10:00 | Outpatient (BNVA) | payer MEDICARE, SELFPAY | PROVIDERS: PCP Internal Medicine; Visit Provider Internal Medicine | DX: Z00.00 Encounter for general adult medical examination without abnormal findings (principal); E55.9 Vitamin D deficiency, unspecified; E53.8 Deficiency of other specified B group vitamins; M48.00 Spinal stenosis, site unspecified; R42 Dizziness and giddiness; F17.200 Nicotine dependence, unspecified, uncomplicated; Z71.6 Tobacco abuse counseling | CPT/HCPCS: 96127; 99397 ==

== ENCOUNTER 2024-06-17 10:39 | Outpatient (RCR) | payer MEDICARE, SELFPAY ==
[2024-06-17 10:41] VITALS: BP 144/80; PULSE 73; O2SAT 98
--- NOTE | 2024-06-17 12:58 | MHC.PT.EP ---
[facility] [place] Office [place] Office [place] Office [address] [place] [address] [address] [phone] F: [phone] F: [phone] F: [phone] F: [phone] Physical Therapy Plan of Care Date of Evaluation: 06/17/24 Date of Surgery: Diagnosis: This is a 73 yo female presenting to skilled PT with a script for vertigo. Assessment: This is a 73 yo female presenting to skilled PT with a script for vertigo. She has had symptoms for a few years and symptoms come and go. Symptoms increase when laying down and when walking however reports constantly dizzy. She has had PT in the past for this and it was not helpful, she was DC'd due to limited progress in relief (she does not recall this however, PT found in old charts). She does not use any medication for dizziness. She has seen an ENT and had no tx. She has had 1 fall in the last year. Examination shows - oculomotor tests with saccades, (-) VBI B, and WFL cervical AROM. She was (-) for BPPV with pina-hallpike B and roll test B. Balance was very limited with static assessment and dynamic assessment during DGI and Bryon SOPT. S/S are not consistent with BPPV and concussion however she is very weak, has spinal stenosis, poor balance and demos self care. She would benefit from a new evaluation by PT for spinal stenosis, balance and LE strengthening 2x/wk for 4wks to address impairments, implement HEP and optimize functional mobility. Frequency and Duration: The patient will be seen 2x/wk for 4wks Short Term Goals: new eval for stenosis Longterm Goals: (if symptoms return or change) I in HEP Negative in all 6 canals for dizziness and nystagmus Return to normal gait pattern without reports fo LOB due to dizziness Treatment Plan: Modalities to reduce pain, spasms and effusion. Manual therapy to restore motion and function. Therapeutic exercise to improve strength and flexibility. Neuromuscular re-education for posture and balance. Therapeutic activities to return to functional activities of daily living. Electronically signed by: Sade Fallon PT Please sign and return to therapist. Thank you for your referral.
--- NOTE | 2024-07-20 12:09 | MHC.PT.DC ---
[facility] [place] Office [place] Office [place] Office [address] Chey Stahl [address] [phone] F: [phone] F: [phone] F: [phone] F: [phone] Physical Therapy Discharge Report Diagnosis: This is a 73 yo female presenting to skilled PT with a script for vertigo. Date of Surgery: Date of Evaluation: 06/17/24 Date of Discharge: 07/20/24 Treatments to Date: 1 Cancellations to Date: 0 No Shows to Date: 0 Discharge Status: Recommend MD Follow-up Discharge Summary: This is a 73 yo female presenting to skilled PT with a script for vertigo. She has had symptoms for a few years and symptoms come and go. Symptoms increase when laying down and when walking however reports constantly dizzy. She has had PT in the past for this and it was not helpful, she was DC'd due to limited progress in relief (she does not recall this however, PT found in old charts). She does not use any medication for dizziness. She has seen an ENT and had no tx. She has had 1 fall in the last year. Examination shows - oculomotor tests with saccades, (-) VBI B, and WFL cervical AROM. She was (-) for BPPV with pina-hallpike B and roll test B. Balance was very limited with static assessment and dynamic assessment during DGI and Bryon SOPT. S/S are not consistent with BPPV and concussion however she is very weak, has spinal stenosis, poor balance and demos self care. She would benefit from a new evaluation by PT for spinal stenosis, balance and LE strengthening 2x/wk for 4wks to address impairments, implement HEP and optimize functional mobility. Electronically signed by: Sade Fallon PT Please sign and return to therapist. Thank you for your referral.
== END 2024-07-20 12:09 | disposition home or self-care (01) ==
LOC: HO.PTCHIC 10:39
PROVIDERS: PCP Internal Medicine; Visit Provider Internal Medicine
DX: H81.13 Benign paroxysmal vertigo, bilateral (principal)
CPT/HCPCS: 97110; 97161; 97162

== ENCOUNTER 2024-06-29 12:54 | Outpatient (RCR) | payer MEDICARE, SELFPAY ==
--- NOTE | 2024-06-29 13:39 | MHC.PT.EP ---
[facility] [place] Office [place] Office [place] Office [address] Chey Stahl [address] [phone] F: [phone] F: [phone] F: [phone] F: [phone] Physical Therapy Plan of Care Date of Evaluation: 06/29/24 Date of Surgery: Diagnosis: This is a 73 yo female presenting to skilled PT with a script for spinal stenosis. Assessment: This is a 73 yo female presenting to skilled PT with a script for spinal stenosis. Patient was recently here for BPPV. At the time S/S were not consistent with BPPV however she was very weak, has spinal stenosis, poor balance and demos decreased self care/function/endurance. Therefore, I thought she would benefit from a new evaluation by PT for spinal stenosis, balance and LE strengthening instead. She is here today reporting that her pain has been ongoing back pain progressively getting worse. She reports sciatic nerve attacks the last being around Feb 2024. Pain is located R side low back and into the glut. Pain is achy in nature and constant. Pain increases with standing, walking. Assessment reveals pain that ranges from up to a 8/10 at the worst. Patient demos decreased lumbar ROM, strength of B LE's, core and back, TTP at surrounding lumbar soft tissues but primarily at the spinous processes (lumbar), decreased gait and balance and impaired posture with forward head, forward trunk and rounded shoulders. Based on functional limitations, impaired QOL and pain tolerance patient is a good candidate for skilled PT 2x/wk for 4wks. Frequency and Duration: The patient will be seen 2x/wk for 4wks Short Term Goals: Pt will demonstrate improved postural awareness and understanding of core engagement with supine and standing tasks without cues throughout session to improve overall back safety in 2 weeks. Pt will demonstrate centralization of sx in 2 weeks. Pt will continue to reinforce precautions, sitting, standing and ADL modifications with proper body mechanics in 2 wks. Planning Aide Goals: Pt will demonstrate improved outcome measure by 5 points in 4 weeks for improved functional mobility. Pt will demonstrate ability to bend and lift WNL min to no pain for household tasks in 4 wks. Pt will be I in HEP and compliant in 4wks Patient will demo at least 4+ hip strength in 4wks Patient will tolerate ambulation with her dogs for at least 5 mins in 4wks Treatment Plan: Modalities to reduce pain, spasms and effusion. Manual therapy to restore motion and function. Therapeutic exercise to improve strength and flexibility. Neuromuscular re-education for posture and balance. Therapeutic activities to return to functional activities of daily living. Electronically signed by: Sade Fallon PT Please sign and return to therapist. Thank you for your referral.
--- NOTE | 2024-07-20 12:05 | MHC.PT.DC ---
[facility] [place] Office [place] Office [place] Office [address] Chey Stahl [address] [facility] [phone] F: [phone] F: [phone] F: [phone] F: [phone] Physical Therapy Discharge Report Diagnosis: This is a 73 yo female presenting to skilled PT with a script for spinal stenosis. Date of Surgery: Date of Evaluation: 06/29/24 Date of Discharge: 07/20/24 Treatments to Date: 1 Cancellations to Date: 0 No Shows to Date: 0 Discharge Status: Patient Elected to Stop Discharge Summary: Patient self DC'd due to dog's health. Electronically signed by: Sade Fallon PT Please sign and return to therapist. Thank you for your referral.
--- NOTE | 2024-07-20 12:07 | MHC.PT.DC ---
[facility] [place] Office [place] [facility] [place] Office [address] Chey Stahl 140 [facility] [phone] F: [phone] F: [phone] F: [phone] F: [phone] Physical Therapy Discharge Report Diagnosis: This is a 73 yo female presenting to skilled PT with a script for spinal stenosis. Date of Surgery: Date of Evaluation: 06/29/24 Date of Discharge: 07/20/24 Treatments to Date: 1 Cancellations to Date: 0 No Shows to Date: 0 Discharge Status: Patient Elected to Stop Discharge Summary: Patient self DC'd due to dog's health. Electronically signed by: Sade Fallon PT Please sign and return to therapist. Thank you for your referral.
== END 2024-07-20 12:08 | disposition home or self-care (01) ==
LOC: HO.PTCHIC 12:54
PROVIDERS: PCP Internal Medicine; Visit Provider Internal Medicine
DX: M48.00 Spinal stenosis, site unspecified (principal)
CPT/HCPCS: 97110; 97162

== ENCOUNTER 2024-07-01 08:20 | Outpatient (REF) | payer MEDICARE, SELFPAY ==
--- NOTE | ~2024-07-01 | XR_ITS ---
EXAMINATION: XR LUMBOSACRAL SPINE CLINICAL INFORMATION: M48.00 - Spinal stenosis, site unspecified COMPARISON: None available. TECHNIQUE: Three views of the lumbosacral spine. FINDINGS: There is mild osteopenia. There is a moderate levoconvex scoliosis with a rotatory component, apex at L3. There is mild straightening of the normal lordosis. No fracture, compression deformity, or suspicious bone lesion. There is a trace degenerative appearing anterolisthesis of L4 on L5 and L5 on S1. Alignment is otherwise anatomic. Multilevel disc degeneration, severe at L3-4 with large ventral disc osteophytes. Multilevel facet degeneration, right greater than left, most significant spanning L3-S1. The sacrum is intact. There are mild arthritic changes in the SI joints. Soft tissues demonstrate no abnormalities. XR/XR lumbar spine 2-3V IMPRESSION: 1. No acute bony abnormalities. 2. Moderate levoconvex scoliosis with a rotatory component. 3. Moderate to advanced degenerative spondylosis. Electronically signed by: Johnny Canchola MD 07/04/2024 11:14 AM EDT
[2024-07-01 10:12] LABS: MANUAL DIFF FLAG NO
[2024-07-01 10:18] LABS: Basophils Percent Auto 0.2 % (0-2); Eosinophils Percent Auto 0.2 % (0-4); Hematocrit 36.5 % (37.0-47.0); Hemoglobin 11.8 g/dl (12.0-16.0); Imm Gran Abs Auto 0.01 X10*3/uL (0.00-0.03); Imm Gran Pct Auto 0.2 % (0.0-0.4); Lymphocytes Absolute Auto 2.2 X10*3/uL (1.2-4.9); Mean Corpuscular HGB Conc 32.3 g/dl (31.0-35.0); Mean Corpuscular Hemoglobin 32.8 pg (27.0-33.0); Mean Corpuscular Volume 101.4 fL (80.0-98.0); Mean Platelet Volume 11.8 fL (9.4-12.3); Monocytes Absolute Auto 0.4 X10*3/uL (0.1-1.2); Monocytes Percent Auto 7.5 % (2-11); Neutrophils Absolute Auto 2.5 x10*3/uL (2.0-8.3); Neutrophils Percent Auto 48.9 % (45-73); Platelet Count 159 X10*3/uL (160-400); Red Cell Distribution Width 13.4 % (11.0-16.0); White Blood Count 5.2 X10*3/uL (4.8-10.8)
[2024-07-01 10:57] LABS: Folate 4.2 ng/mL (> or = 4.0); Vitamin B12 825 pg/mL (200-900)
[2024-07-01 10:59] LABS: Alanine Aminotransferase 28 U/L (0-31); Albumin Level 3.6 g/dL (3.5-5.0); Alkaline Phosphatase 96 U/L (39-117); Anion Gap 9 (12-20); Aspartate Amino Transferase 30 U/L (5-31); Bilirubin Total 0.4 mg/dL (0.0-1.0); Blood Urea Nitrogen 18 mg/dL (9-16); Carbon Dioxide 27 mmol/L (22-29); Chloride 108 mmol/L (96-108); Cholesterol 112 mg/dL (<200); Estimated Glomerular Filt Rate > 60; Glucose Fasting 92 mg/dL (60-99); HDL Cholesterol 61 mg/dL (>40); LDL Cholesterol Calculated 41 mg/dL (<100); Potassium 3.8 mmol/L (3.3-5.1); Sodium 140 mmol/L (135-145); TSH reflex Free T4 3.49 uIU/mL (0.32-4.0); Total Protein 6.1 g/dL (6.5-8.0); Triglycerides 52 mg/dL (<150); Vitamin D 25-OH Total 18.2 ng/mL (>30)
== END 2024-07-01 08:21 | disposition home or self-care (01) ==
LOC: HO.HMGCX 08:20
PROVIDERS: PCP Internal Medicine; Visit Provider Internal Medicine
DX: Z00.00 Encounter for general adult medical examination without abnormal findings (principal); E53.8 Deficiency of other specified B group vitamins; E55.9 Vitamin D deficiency, unspecified; G95.9 Disease of spinal cord, unspecified; M48.00 Spinal stenosis, site unspecified
CPT/HCPCS: 36415; 72100; 80053; 80061; 82306; 82607; 82746; 84443; 85025

== ENCOUNTER → 2024-07-01 08:35 | Outpatient (BNV) | payer MEDICARE, SELFPAY | PROVIDERS: PCP Internal Medicine; Visit Provider Radiology Diagnostic Radiology | DX: M47.816 Spondylosis without myelopathy or radiculopathy, lumbar region (principal); M41.86 Other forms of scoliosis, lumbar region | CPT/HCPCS: 72100 ==

== ENCOUNTER 2024-07-25 10:41 | Outpatient (AMB) | payer MEDICARE, SELFPAY ==
[2024-07-25 10:53] VITALS: BP 126/66; PULSE 69; RESP 18; TEMP 36.6; O2SAT 96; BMI 30.7
--- NOTE | 2024-07-25 10:53 | MHC.PC.OV ---
Vital Signs 07/25/24 10:53 Height 5 ft 4 in Weight 179 lb BMI 30.7 BP 126/66 Blood Pressure Location Lt brachial Position Sitting Respiration 18 Pulse 69 Pulse Source Pulse Oximeter Temp 97.9 F Temp Source Oral Pulse Oximetry (%) 96 Oxygen Delivery Method Room Air Intake Visit Reasons: 2m follow up Intake Note: Pt is here today for 2 months follow up visit. Allergies Iodinated Contrast Media [IV Contrast Dye] Allergy (Verified 05/24/24 10:28) Anaphylaxis Medication List - Last Reconciled 07/25/24 by Chichi Coats MD No Known Home Meds Tobacco use date assessed: 07/25/24 Fall risk assessment: No Falls in past year Last assessed Fall Risk: 07/25/24 Dental Screening Dental Screen Date: 05/24/24 HPI 2m follow up HPI Details Pt presents for follow-up of chronic vertigo and difficulty with the balance getting worse. Patient has been feeling more unsteady on her feet when walking and has been using cane. She tried vestibular therapy without improvement and had negative ENT evaluation. Patient denies diplopia weakness or numbness in extremities change in bowel or bladder function. Patient reports dyspnea on exertion intermittent cough with clear sputum and wheezing. She has stopped smoking a few months ago. 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 Vertigo Tobacco abuse Annual physical exam Tinnitus Surgical History H/O gastric bypass History of appendectomy Family History Father Diabetes Mother HTN (hypertension) Social History Household Members Other:: lives mother, sisters Housing: House Alcohol intake: former Patient Tobacco Use Status: Former Tobacco user (2 weeks ago) Tobacco use type: Cigarette Cigarettes Per Day: 4 e-Cigarette/Vaping Use: Never Used service: No Current occupational status: retired Cognitive needs: No Hearing needs: No Vision needs: Yes Questionnaire Thrive Questionnaire Date Thrive assessed: 05/01/24 I am a: Patient What is your living situation today?: I have a steady place to live Within the past 12 months, did the food you bought not last and you didn't have the money to get more?: Sometimes True Within the past 12 months, did you worry whether your food would run out before you got money to buy more?: Sometimes True Do you have trouble paying for medicines?: No Do you have trouble getting transportation to medical appointments?: Yes Do you have trouble paying your heating and electricity bill?: I choose not to answer this question Do you have trouble taking care of your child, family member or friend?: I choose not to answer this question Do you have trouble with day-to-day activities such as bathing, preparing meals, shopping, managing finances, etc.?: Yes Are you currently unemployed and looking for a job?: No Are you interested in more education?: No Currently or been in a relationship where the following occur: No concerns reported THRIVE Score: 3 SETH-7 AMB Questionnaire SETH-7 Date SETH - 7 assessed: 05/24/24 Source: Developed by Drs. Geovanny Ayala, Stacy Cool, Nick Quiles and colleagues, with an educational shanika from [employer] Review of Systems Const All systems reviewed & are unremarkable except as noted in HPI and below Reports no additional complaints Eyes Reports no additional complaints ENT Reports no additional complaints Card Reports no additional complaints Resp Reports no additional complaints GI Reports no additional complaints Reports no additional complaints Physical exam (Primary Care) Vital Signs: Last Vital Signs Temp 97.9 F 07/25/24 10:53 Pulse 69 07/25/24 10:53 Resp 18 07/25/24 10:53 BP 126/66 07/25/24 10:53 Pulse Ox 96 07/25/24 10:53 Oxygen Delivery Method Room Air 07/25/24 10:53 BMI result Body Mass Index 30.7 Tobacco/Smoking Status: Tobacco use Status Tobacco use date assessed 07/25/24 07/25/24 11:02 Patient Tobacco Use Status Former Tobacco user (2 weeks 07/25/24 11:02 ago) Tobacco use type Cigarette 07/25/24 11:02 e-Cigarette/Vaping Use Never Used 07/25/24 11:02 Thrive Assessment: Date of Thrive Assessment Date Thrive assessed 05/01/24 07/25/24 11:02 Currently or been in a relationship where the following occur: No concerns reported Const General: no acute distress HENMT Head: Yes normal to inspection Mouth: Normal oral and palatal mucosa present Eyes General: appearance normal, both eyes and all related structures Neck Neck: Yes no lymphadenopathy and Yes supple Resp Effort & Inspection: normal respiratory effort Auscultation: clear to auscultation bilaterally Cardio Rhythm: regular rhythm Heart sounds: S1 normal heart sound present and S2 normal heart sound present GI Inspection: Yes normal to inspection Palpation (GI): Soft to palpation Auscultation: normal bowel sounds Neuro Cranial nerves: Yes CN's II-XII intact bilaterally Gait exam (Neuro): Staggering gait present Motor exam (neuro): 5/5 motor strength present throughout Coordination: [id number] test normal Romberg Test: Positive Coding Level of Care Code Est Pt Level 4 (50655) Complex EM visit Add On G2211 Diagnoses Anemia D64.9 Vitamin D deficiency E55.9 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 R29.818 COPD (chronic obstructive pulmonary disease) J44.9 Assessment & Plan Assessment & Plan (1) Anemia: Code(s): D64.9 - Anemia, unspecified Category: Medical Plan: Check iron studies B12 and monitor CBC (2) Vitamin D deficiency: Code(s): E55.9 - Vitamin D deficiency, unspecified Category: Medical Plan: Continue vitamin-D supplement check the level (3) 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: Code(s): R29.818 - Other symptoms and signs involving the nervous system Category: Medical Plan: Obtain MRI of the brain to evaluate for cerebellar CVA (4) COPD (chronic obstructive pulmonary disease): Comment: Patient cannot afford Trelegy, patient refused Pneumovax 07/2024 Code(s): J44.9 - Chronic obstructive pulmonary disease, unspecified Category: Medical Plan: Try Anoro Ellipta, patient follows up with lung cancer screening program Orders: Orders Vitamin D 25-OH Total 2 Months D64.9 - Anemia, unspecified Vitamin B1 2 Months D64.9 - Anemia, unspecified MR head/brain wo con Today I63.9 - Cerebral infarction, unspecified, R29.818 - Other symptoms and signs involving the nervous system Vitamin B12 and Folate 2 Months D64.9 - Anemia, unspecified IRON PROFILE 2 Months D64.9 - Anemia, unspecified Complete Blood Count Auto Diff 2 Months D64.9 - Anemia, unspecified Medications: New Anoro Ellipta 62.5-25 mcg/actuation (umeclidinium-vilanterol) 1 inh inhalation DAILY 60 ea 4RF NS
== END 2024-07-25 12:01 | disposition home or self-care (01) ==
LOC: HO.HMCC 10:42
PROVIDERS: PCP Internal Medicine; Visit Provider Internal Medicine
DX: D64.9 Anemia, unspecified (principal); E55.9 Vitamin D deficiency, unspecified; R29.818 Other symptoms and signs involving the nervous system; J44.9 Chronic obstructive pulmonary disease, unspecified

== ENCOUNTER → 2024-07-25 10:41 | Outpatient (BNVA) | payer MEDICARE, SELFPAY | PROVIDERS: PCP Internal Medicine; Visit Provider Internal Medicine | DX: R42 Dizziness and giddiness (principal); R26.89 Other abnormalities of gait and mobility; D64.9 Anemia, unspecified; E55.9 Vitamin D deficiency, unspecified; R29.818 Other symptoms and signs involving the nervous system; J44.9 Chronic obstructive pulmonary disease, unspecified | CPT/HCPCS: 99212 ==

== ENCOUNTER 2024-08-07 11:06 | Outpatient (REF) | payer MEDICARE, SELFPAY ==
--- NOTE | ~2024-08-07 | MR_ITS ---
CLINICAL HISTORY: R29.818 - Other symptoms and signs involving the nervous system MR Brain without gadolinium Comparison: None Findings: No restricted diffusion. No intra-axial mass or hemorrhage. No midline shift. No hydrocephalus. Vascular flow voids are intact. Moderate scattered T2 signal prolongation in the periventricular white matter. Mild volume loss. The orbits are normal. The sinuses and mastoid air cells are clear. No focal bone lesion. IMPRESSION: No acute findings. Chronic ischemic microangiopathy and mild volume loss. This document has been electronically signed by: Clyde Burns MD on 08/07/2024 12:20:02
== END 2024-08-07 11:07 | disposition home or self-care (01) ==
LOC: HO.MRI 11:06
PROVIDERS: PCP Internal Medicine; Visit Provider Internal Medicine
DX: R29.818 Other symptoms and signs involving the nervous system (principal); I63.9 Cerebral infarction, unspecified
CPT/HCPCS: 70551

== ENCOUNTER → 2024-08-07 11:13 | Outpatient (BNV) | payer MEDICARE, SELFPAY | PROVIDERS: PCP Internal Medicine; Visit Provider Radiology Vascular & Interventional Radiology | DX: R90.82 White matter disease, unspecified (principal) | CPT/HCPCS: 70551 ==

== ENCOUNTER 2025-01-23 10:32 | Outpatient (AMB) | payer MEDICARE, SELFPAY ==
[2025-01-23 10:37] VITALS: BP 126/68; PULSE 90; RESP 17; O2SAT 96
--- NOTE | 2025-01-23 10:37 | A.OFFPC_ITS ---
Vital Signs 01/23/25 10:37 Height 5 ft 4 in Weight 175 lb BMI 30.0 BP 126/68 Blood Pressure Location Lt brachial Position Sitting Respiration 17 Pulse 90 Pulse Source Pulse Oximeter Pulse Oximetry (%) 96 Oxygen Delivery Method Room Air Intake Visit Reasons: 6m follow up Intake Note: Pt is here today for 6 months follow up visit. Allergies Iodinated Contrast Media (IV Contrast Dye) Allergy (Verified 01/23/25 10:58) Anaphylaxis Medication List - Last Reconciled 01/23/25 by Chichi Coats MD Anoro Ellipta 62.5-25 mcg/actuation (umeclidinium-vilanterol) 1 inh inhalation DAILY NS Tobacco use date assessed: 01/23/25 Fall risk assessment: No Falls in past year Last assessed Fall Risk: 01/23/25 Dental Screening Dental Screen Date: 05/24/24 HPI 6m follow up HPI Details Pt patient presents for the follow-up. She complains of worsening lower extremities weakness, numbness tingling sensation in 4 extremities, worse in the legs. Patient reports difficult with the balance despite walking with a cane. She tried physical therapy for few sessions without significant improvement. Patient denies any change in bowel or bladder function and saddle paresthesia. Patient continues to smoke half a pack a day but denies cough shortness or breath or wheezing. 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 Vertigo Tobacco abuse Annual physical exam Tinnitus Surgical History H/O gastric bypass History of appendectomy Family History Father Diabetes Mother HTN (hypertension) Social History Household Members Other:: lives mother, sisters Housing: House Alcohol intake: former Patient Tobacco Use Status: Current someday Tobacco user (2 weeks ago) Tobacco use type: Cigarette Cigarettes Per Day: 4 e-Cigarette/Vaping Use: Never Used service: No Current occupational status: retired Cognitive needs: No Hearing needs: No Vision needs: Yes Questionnaire PHQ-9 Over the last 2 weeks, how often have you been bothered by any of the following problems? 1. Little interest or pleasure in doing things: several days 2. Feeling down, depressed, or hopeless: several days 3. Trouble falling or staying asleep, or sleeping too much: several days 4. Feeling tired or having little energy: several days 5. Poor appetite or overeating: not at all 6. Feeling bad about yourself - or that you are a failure or have let yourself or your family down: not at all 7. Trouble concentrating on things, such as reading the newspaper or watching television: not at all 8. Moving or speaking so slowly that other people could have noticed. Or the opposite - being so fidgety or restless that you have been moving around a lot more than usual: not at all 9. Thoughts that you would be better off or of hurting yourself in some way: not at all Total score: 4 Depression Screening Interpretation: Negative Depression Screening Done: Yes Source: Developed by Drs. Geovanny Ayala, Stacy Cool, Nick Quiles and colleagues, with an educational shanika from [employer]. Thrive Questionnaire Date Thrive assessed: 05/01/24 I am a: Patient What is your living situation today?: I have a steady place to live Within the past 12 months, did the food you bought not last and you didn't have the money to get more?: Sometimes True Within the past 12 months, did you worry whether your food would run out before you got money to buy more?: Sometimes True Do you have trouble paying for medicines?: No Do you have trouble getting transportation to medical appointments?: Yes Do you have trouble paying your heating and electricity bill?: I choose not to answer this question Do you have trouble taking care of your child, family member or friend?: I choose not to answer this question Do you have trouble with day-to-day activities such as bathing, preparing meals, shopping, managing finances, etc.?: Yes Are you currently unemployed and looking for a job?: No Are you interested in more education?: No Currently or been in a relationship where the following occur: No concerns reported THRIVE Score: 3 SETH-7 AMB Questionnaire SETH-7 Date SETH - 7 assessed: 05/24/24 Feeling nervous, anxious, or on edge: 0 = Not at all Not being able to stop or control worryin = Not at all Worrying too much about different things: 0 = Not at all Trouble relaxin = Not at all Being so restless that it is hard to sit still: 0 = Not at all Becoming easily annoyed or irritable: 0 = Not at all Feeling afraid as if something awful might happen: 0 = Not at all Total SETH-7 score (0-4 normal; 5-9 mild; 10-14 moderate; 15-21 severe): 0 Source: Developed by Drs. Geovanny Ayala, Stacy Cool, Nick Quiles and colleagues, with an educational shanika from [employer]. Physical exam (Primary Care) Vital Signs: Last Vital Signs Pulse 90 01/23/25 10:37 Resp 17 01/23/25 10:37 BP 126/68 01/23/25 10:37 Pulse Ox 96 01/23/25 10:37 Oxygen Delivery Method Room Air 01/23/25 10:37 BMI result Body Mass Index 30.0 Tobacco/Smoking Status: Tobacco use Status Tobacco use date assessed 01/23/25 01/23/25 11:01 Patient Tobacco Use Status Current someday Tobacco (2 01/23/25 11:01 weeks ago) Tobacco use type Cigarette 01/23/25 10:37 e-Cigarette/Vaping Use Never Used 01/23/25 10:37 PHQ-9: PHQ-9 Score PHQ-9: Total score 4 01/23/25 11:01 Depression Screening Interpretation: Negative Thrive Assessment: Date of Thrive Assessment Date Thrive assessed 05/01/24 01/23/25 10:37 Currently or been in a relationship where the following occur: No concerns reported Const General: no acute distress HENMT Head: Yes normal to inspection Throat: Yes posterior oropharynx normal Neck Neck: Yes no lymphadenopathy and Yes supple Resp Effort & Inspection: normal respiratory effort Auscultation: wheezes and diminished lung sounds Cardio Rhythm: regular rhythm Heart sounds: S1 normal heart sound present and S2 normal heart sound present Neuro Other: Lower extremity strength 4/5 bilaterally, deep tendon reflexes +3 bilaterally lower and upper extremities, Cranial nerves: Yes CN's II-XII intact bilaterally Gait exam (Neuro): Staggering gait present and Wide-based gait present Motor exam (neuro): Pronator motor function not present Coding Level of Care Code Est Pt Level 4 (44841) Diagnoses Vitamin D deficiency E55.9 Anemia D64.9 Spinal stenosis M48.00 COPD (chronic obstructive pulmonary disease) J44.9 Assessment & Plan Assessment & Plan (1) Vitamin D deficiency: Code(s): E55.9 - Vitamin D deficiency, unspecified Category: Medical Plan: Continue vitamin-D check the level (2) Anemia: Code(s): D64.9 - Anemia, unspecified Category: Medical Plan: Check blood work including vitamin B12 and iron level (3) Spinal stenosis: Comment: XR L spine 06/2024 moderate to severe degenerative joint disease severe , at L4- L5 large ventral disc osteophytes Code(s): M48.00 - Spinal stenosis, site unspecified Category: Medical Plan: Obtain MRI of lumbar spine to evaluate for spinal stenosis/ disc herniation (4) COPD (chronic obstructive pulmonary disease): Comment: Patient cannot afford Trelegy, patient refused Pneumovax 07/2024 Code(s): J44.9 - Chronic obstructive pulmonary disease, unspecified Category: Medical Plan: Restart Anoro , tobacco quitting discussed with the patient Orders: Orders Complete Blood Count Auto Diff Today D64.9 - Anemia, unspecified, E53.8 - Deficiency of other specified B group vitamins, E55.9 - Vitamin D deficiency, unspecified IRON PROFILE Today D64.9 - Anemia, unspecified, E53.8 - Deficiency of other specified B group vitamins, E55.9 - Vitamin D deficiency, unspecified Comprehensive Met. Panel Today D64.9 - Anemia, unspecified, E53.8 - Deficiency of other specified B group vitamins, E55.9 - Vitamin D deficiency, unspecified Vitamin B12 and Folate Today D64.9 - Anemia, unspecified, E53.8 - Deficiency of other specified B group vitamins, E55.9 - Vitamin D deficiency, unspecified Vitamin D 25-OH Total Today D64.9 - Anemia, unspecified, E53.8 - Deficiency of other specified B group vitamins, E55.9 - Vitamin D deficiency, unspecified MR lumbar spine wo con Today M48.00 - Spinal stenosis, site unspecified Medications: Refilled Anoro Ellipta 62.5-25 mcg/actuation (umeclidinium-vilanterol) 1 inh inhalation DAILY 60 ea 4RF NS
== END 2025-01-23 11:51 | disposition home or self-care (01) ==
LOC: HO.HMCC 10:32
PROVIDERS: PCP Internal Medicine; Visit Provider Internal Medicine
DX: E55.9 Vitamin D deficiency, unspecified (principal); D64.9 Anemia, unspecified; M48.00 Spinal stenosis, site unspecified; J44.9 Chronic obstructive pulmonary disease, unspecified

== ENCOUNTER → 2025-01-23 10:32 | Outpatient (BNVA) | payer MEDICARE, SELFPAY | PROVIDERS: PCP Internal Medicine; Visit Provider Internal Medicine | DX: R53.1 Weakness (principal); D64.9 Anemia, unspecified; M48.00 Spinal stenosis, site unspecified; E55.9 Vitamin D deficiency, unspecified; E53.8 Deficiency of other specified B group vitamins; J44.9 Chronic obstructive pulmonary disease, unspecified; F17.210 Nicotine dependence, cigarettes, uncomplicated | CPT/HCPCS: 96127; 99212 ==